=== PATIENT | female | born 1955 | race Caucasian/White ===

== ENCOUNTER → 2023-02-07 | Outpatient (CLI) | payer MEDICARE, OTHER, SELFPAY ==
[2023-02-07 21:57] LABS: Absolute Lymphocyte Count 2.47 X10^3/uL (0.83-4.51); Absolute Neutrophil Count 3.7 X10^3/uL (2.0-7.7); Basophil# 0.03 X10^3/uL; Basophil% 0.4 % (0-1); Eosinophil# 0.16 X10^3/uL; Eosinophils% 2.3 % (0-5); Hematocrit 41.6 % (37-47); Hemoglobin 13.6 g/dL (12.0-15.0); Lymphocyte # 2.47 X10^3/ul (0.83-4.51); Lymphocyte % 35.9 % (19-41); Mean Corp Hgb Conc 32.7 g/dL (32-36); Mean Corpuscular Hgb 28.3 pg (27.0-32.0); Mean Corpuscular Volume 86.7 fL (81-99); Mean Platelet Vol. 12.4 fl (6.2-12.0); Monocyte# 0.47 X10^3/uL; Monocyte% 6.8 % (0-10); NRBC Flagged by Analyzer 0 % (0-5); Neutrophil # 3.73 X10^3/uL (2.7-7.7); Neutrophil % 54.3 % (47-70); Platelet Count 247 K/mm3 (150-450); RBC Distribution Width CV 12.4 % (11.6-14.6); RBC Distribution Width SD 39.1 fl (35.1-43.9); White Blood Count 6.9 K/mm3 (4.4-11.0)
[2023-02-07 22:20] LABS: ALB/GLOB Ratio 1.1 RATIO (0.9-2.4); AST(SGOT) 17 U/L (15-37); Alanine Aminotransfer ALT/SGPT 38 U/L (13-56); Albumin, Serum 3.9 g/dL (3.2-5.0); Alkaline Phosphatase 114 U/L (45-117); Anion Gap 6 (5-15); BUN 18 mg/dL (7-18); BUN/Creat Ratio 25.9 RATIO (10-20); Calcium,Total 9.7 mg/dL (8.5-10.1); Chloride 105 mmol/L (98-107); Cholesterol 235 mg/dL (200); EST Glomerular Filtration Rate 90 mL/min (>60); Est Glom Filt Rate - Afr Amer 109 mL/min (>60); Globulin 3.5 g/dL (2.2-4.2); Glucose 294 mg/dL (74-106); High Density Lipoprotein 38 mg/dL; Potassium 4.4 mmol/L (3.5-5.1); Protein, Total 7.4 g/dL (6.4-8.2); Sodium Level 136 mmol/L (136-145); Triglycerides 327 mg/dL; Very Low Density Lipoprotein 65 mg/dL (5-40)
== END | disposition home or self-care (01) ==
PROVIDERS: Visit Provider Nurse Practitioner
DX: I10 Essential (primary) hypertension (principal); E78.2 Mixed hyperlipidemia
CPT/HCPCS: 80053; 80061; 85025

== ENCOUNTER → 2024-12-16 | Outpatient (CLI) | payer MEDICARE, OTHER, SELFPAY ==
--- OUTSIDE RECORDS SUMMARY | 2024-12-17 01:05 | XMS RPT_ITS | CCD ---
Author Organization [facility] Care Team Providers Care Moisture Meter Operator Name Role Phone [place] TEAM ASSISTANT.Kat WILSON Primary Care Provide r Sha Urrutia MD Unavailable [phone] KAT HURTADO Primary Care Unavailable KAT HURTADO Primary Care Unavailable TIAGO BE Attending Unavailable TIAGO BE Attending Unavailable TIAGO RODRIGUEZ Referring Unavailabl e KAT HURTADO Primary Care Unavailable KAT HURTADO Primary Care Unavailable Allergies Allergy Classification Reported Allergen(s) Allergy Type Date of Onset Reaction(s) Facility (5 sources) Angiotensin-conv erting enzyme inhibitor agent; Translations: [ARNOLD INHIBITORS] Drug Allergy 2 Cough [facility] (5 sources) dilTIAZem; Translations: [DILTIAZEM HCL] Drug Allergy 0 [facility] (5 sources) Sulfites; Translations: [SULFITES] Food Allergy 1 [facility] Work Phone: (5 sources) Sulfonamides (Antibiotic); Translations: [SULFA (SULFONAMIDE ANTIBIOTICS)] Drug Allergy 0 [facility] (1 source) dilTIAZem Drug Allergy 8 rash [facility] (1 source) Sulfonamides (Antibiotic) Allergy to substance 8 muscle weakness and hives [facility] Medications Current Medications Medication Drug Class(es) Dates Sig (Normalized) Sig (Original) doxycycline monohydrate 100 mg oral capsule (2 sources) Tetracycline-clas s Drug Start: 07-13-2023 End: 07-23-2023 take 1 capsule by mouth twice daily doxycycline monohydrate (MONODOX) 100 mg capsule Indications: Cellulitis of left external ear Take 1 capsule by mouth two times a day for 10 days. 20 capsule 0 07/13/2023 07/23/2023 Active Comment on above: Take 1 capsule by mo [facility] two times a day for 10 days. Completed/Discontinued Medications Medication Drug Class(es) Dates Sig (Normalized) Sig (Original) amoxicillin 500 mg oral capsule (12 sources) Penicillin-class Antibacterial Start: 08-28-2021 amoxicillin (POLYMOX, AMOXIL) 500 mg capsule Take 4 capsules by mouth 60 minutes prior to dental appointment. 12 capsule 3 08/28/2021 Active Start: 05-16-2020 take 4 capsules by m outh every hour amoxicillin (POLYMOX, AMOXIL) 500 mg capsule Take 4 capsules by mouth one hour prior to appointment. 16 capsule 1 08/31/2020 Active Comment on above: Take 4 capsules by m outh 1 hour prior to appointment Take 4 capsules by m outh one hour prior to appointment. Take 4 capsules by m outh 60 minutes prior to dental appointment. ascorbic acid 500 mg oral tablet (4 sources) Vitamin C Start: 2013 take 1 tablet by mouth twice daily ascorbic acid 500 mg tablet Take 1 tablet by mouth twice daily. 14 tablet 0 08/28/2013 Active Comment on above: Take 1 tablet by jackie twice daily. baclofen 5 mg oral tablet (5 sources) gamma-Aminobutyric Acid-ergic Agonist Start: 2021 End: 2021 take 1 tablet by mouth three times daily as needed for muscle spasms, then take 1-2 tablets by mouth three times daily as needed for muscle spasms baclofen (LIORESAL) 5 mg tablet Take 1 tablet by mouth three times daily as needed for spasms. May take 1-2 tablets up to three times daily. 60 tablet 4 10/04/2021 Active Comment on above: Take 1 tablet by jackie th three times daily as needed for spasms. May take 1-2 tablets up to three times daily. benzonatate 100 mg oral capsule (4 sources) Non-narcotic Antitussive Start: 2018 take 1 capsule by mouth three times daily as needed benzonatate (TESSALON PERLES) 100 mg capsule Indications: Acute otitis media, right Take 1 capsule by mouth three times daily as needed. 30 capsule 0 09/03/2018 Active Comment on above: Take 1 capsule by mo uth three times daily as needed. ciprofloxacin 3 mg/ml ophthalmic solution (3 sources) Quinolone Antimicrobial Start: 2023 take 5 drop(s) into the eye(s) twice daily ciprofloxacin HCl (CILOXAN) 0.3 % ophthalmic solution Instill 5 Drops two times a day into the Right ear 10 mL 1 07/15/2023 Active Comment on above: Instill 5 Drops two times a day into the Right ear clobetasol propionate 0.0005 mg/mg topical gel (3 sources) Corticosteroid Start: 2022 Clobetasol Propionate 0.05 % gel Apply twice a day for two weeks then as needed for flaring on the body 60 g 5 06/13/2022 Active Comment on above: Apply twice a day fo r two weeks then as needed for flaring on the body COMPOUNDED PRESCRIPTION (4 sources) COMPOUNDED PRESCRIPTION Multiple vitamin supplements. 0 Active Comment on above: Multiple vitamin sup plements. cyclobenzaprine hydrochloride 5 mg oral tablet (1 source) Muscle Relaxant Start: 2017 End: 2019 take 5 mg by mouth three times daily Cyclobenzaprine Discontinued 5 MG PO THREE TIMES A DAY 60 January 07, 2018 12:00am February 15, 2020 4:25pm diclofenac sodium 0.01 mg/mg topical gel (4 sources) Nonsteroidal Anti-inflammatory Drug Start: 2016 apply 4 g topically twice daily as needed for pain diclofenac sodium (VOLTAREN) 1 % topical gel 4 g twice daily as needed (for pain). As Directed. 2 Tube 0 02/01/2017 Active Comment on above: 4 g twice daily as n eeded (for pain). As Directed. gemfibrozil 600 mg oral tablet (20 sources) Peroxisome Proliferator Receptor alpha Agonist Start: 2015 End: 2022 take 1 tablet by mouth twice daily gemfibrozil (LOPID) 600 mg tablet Take 1 tablet by mouth twice daily. 180 tablet 3 02/07/2023 Active Comment on above: Take 1 tablet by jackie th twice daily. TAKE 1 TABLET BY JACKIE TH TWICE DAILY losartan potassium 100 mg oral tablet (20 sources) Angiotensin 2 Receptor Christiano Start: 2017 End: 2022 take 1 tablet by mouth once daily losartan (COZAAR) 100 mg tablet Take 1 tablet by mouth once daily 90 tablet 3 02/07/2023 Active Comment on above: TAKE 1 TABLET BY JACKIE ONCE DAILY. Take 1 tablet by jackie th once daily NUTRITIONAL SUPPLEMENT/FIBER (JUICE PLUS FIBRE ORAL) (4 sources) NUTRITIONAL SUPPLEMENT/FIBER (JUICE PLUS FIBRE ORAL) Take by mouth. 0 Active Comment on above: Take by mouth. tacrolimus 0.001 mg/mg topical ointment (3 sources) Calcineurin Inhibitor Immunosuppressant Start: 2022 tacrolimus (PROTOPIC) 0.1 % ointment Apply to affected areas of the face twice a day as needed 30 g 1 06/13/2022 Active Comment on above: Apply to affected ar eas of the face twice a day as needed valsartan 320 mg oral tablet (4 sources) Angiotensin 2 Receptor Christiano take 1 tablet by mouth once daily valsartan (DIOVAN) 320 mg tablet Take 320 mg by mouth once daily. 0 Active Comment on above: Take 320 mg by mouth once daily. 24 hr verapamil hydrochloride 240 mg extended release oral capsule (20 sources) Calcium Channel Christiano Start: 2017 End: 2022 take 1 capsule by mouth twice daily verapamil ER (VERELAN) 240 mg 24 hr capsule Take 1 capsule by mouth twice daily. 180 capsule 3 02/07/2023 Active Start: 05-18-2016 take 1 tablet by jackie th twice daily verapamil SR (CALAN SR, ISOPTIN SR) 240 mg CR tablet Take 1 tablet by mouth twice daily. 180 tablet 3 05/18/2016 Active Comment on above: Take 1 tablet by jackie twice daily. TAKE ONE CAPSULE BY MOUTH TWICE DAILY. Take 1 capsule by mo [facility] twice daily Take 1 capsule by mo [facility] twice daily. Problems Active Problems Problem Classification Problem Date Documented Date Episodic/Chronic Abdominal pain (1 source) Left upper quadrant pain; Translations: [Left upper quadrant pain] 10-04-2021 Episodic Disorders of lipid metabolism (5 sources) Hyperlipidemia; Translations: [Hyperlipidemia, unspecified] Onset: 10-24-2010 04-18-2017 Chronic Essential hypertension (5 sources) Hypertensive disorder; Translations: [Essential (primary) hypertension] Onset: 10-24-2010 04-18-2017 Chronic Immunity disorders (4 sources) Hypogammaglobulinemia ; Translations: [Nonfamilial hypogammaglobulinemia ] Onset: 08-30-2014 10-12-2015 Chronic Malaise and fatigue (1 source) Fatigue; Translations: [Other fatigue] 01-07-2018 Episodic Other ear and sense organ disorders (1 source) Cellulitis of left external ear; Translations: [Cellulitis of left external ear] 07-15-2023 Episodic Other ear and sense organ disorders (2 sources) Acute otitis externa of right ear; Translations: [Unspecified acute noninfective otitis externa, right ear] 07-15-2023 Episodic Other ear and sense organ disorders (1 source) Cellulitis of left external ear; Translations: [Cellulitis of left external ear] Onset: 07-15-2023 Episodic Other injuries and conditions due to external causes (1 source) Injury of musculoskeletal system; Translations: [Other injury of unspecified body region, initial encounter] 10-04-2021 Episodic Other screening for suspected conditions (not mental disorders or infectious disease) (1 source) Patient encounter status; Translations: [Encounter for screening mammogram for malignant neoplasm of breast] 02-17-2019 Episodic Other upper respiratory infections (1 source) Sore throat symptom; Translations: [Acute pharyngitis, unspecified] Episodic Otitis media and related conditions (1 source) Dysfunction of right eustachian tube; Translations: [Unspecified Eustachian tube disorder, right ear] 08-02-2023 Episodic Spondylosis; intervertebral disc disorders; other back problems (4 sources) Degeneration of cervical intervertebral disc; Translations: [Other cervical disc degeneration, unspecified cervical region] Onset: 02-01-2017 04-18-2017 Chronic Spondylosis; intervertebral disc disorders; other back problems (1 source) Spasm of back muscles; Translations: [Muscle spasm of back] 01-08-2018 Episodic Unclassified (4 sources) Transition of care; Translations: [Transition of care performed with sharing of clinical summary] Onset: 04-18-2017 04-19-2017 Unclassified (1 source) Hypogammaglobulinaemi a, unspecified 02-15-2020 Past or Other Problems Problem Classification Problem Date Documented Da te Episodic/Chronic Calculus of urinary tract (8 sources) Kidney stone; Translations: [Calculus of kidney] Onset: 6 06-14-2015 Episodic Gastrointestinal hemorrhage (4 sources) Gastrointestinal hemorrhage; Translations: [Gastrointestinal hemorrhage, unspecified] Onset: 7 04-18-2017 Episodic Genitourinary symptoms and ill-defined conditions (4 sources) Pyuria; Translations: [Pyuria] Onset: 6 06-14-2015 Episodic Heart valve disorders (4 sources) Heart murmur; Translations: [Cardiac murmur, unspecified] Onset: 5 08-30-2014 Episodic Other connective tissue disease (1 source) Weakness of right leg; Translations: [Other symptoms and signs involving the musculoskeletal system] Onset: 4 09-30-2013 Episodic Other connective tissue disease (3 sources) Other symptoms and signs involving the musculoskeletal system; Translations: [Other musculoskeletal symptoms referable to limbs] Onset: 4 09-30-2013 Episodic Other nervous system disorders (4 sources) Abnormal gait; Translations: [Unspecified abnormalities of gait and mobility] Onset: 4 09-30-2013 Episodic Urinary tract infections (4 sources) Pyelonephritis; Translations: [Tubulo-interstitial nephritis, not specified as acute or chronic] Onset: 6 06-21-2015 Episodic Results Test Name Value Interpretation Reference Range Facility [facility] 08-02-2023 CNOV Office Visit (WALKBR ) -------- FLO,JERILYN ([id number]) 1955 [facility] Date Time Provider Department 08/02/23 7:05 PM KENYON CAMARGO [facility] During your visit today, we recorded the following information about you: Temperature Pulse Respiration Blood pressure 98.4 degrees 92/minute 16/minute 152/86 Kenyon Camargo APRN.CNP 08/02/2023 7:32 PM Signed [facility] PATIENT NAME: Jerilyn Rossi DATE OF : 1955 TODAYS' DATE: 08/02/2023 Subjective: Ms. Rossi is a 68 year old female Patient presents with: Ear Pain: Right ear pain since jul 13 History of Present Illness: The history is provided by the patient. No foreign language interpreter was used. Ear Problem There is pain in the right ear. This is a new problem. The current episode started yesterday. The problem occurs every few hours. The problem has been unchanged. Pertinent negatives include no coughing, diarrhea, headaches, neck pain, rhinorrhea or vomiting. Associated symptoms comments: +ear wetness + ear congestion . Pt states last month she had cellulitis of right ear and was seen in [facility] and by ENT. Pt just finished Ciprodex ear drops couple days ago. Pt wants to make sure right ear is ok. Review of Systems: Review of Systems HENT: Negative for ear pain and rhinorrhea. Respiratory: Negative for cough. Gastrointestinal: Negative for diarrhea and vomiting. Musculoskeletal: Negative for neck pain. Neurological: Negative for headaches. Allergies: Allergies: Arnold Inhibitors Cough Cardizem [Diltiazem* Rash Sulfa (Sulfonamide * Rash Comment:Along with deep muscle burning. Sulfites Hives Comment:Sulfites in wine Past Medical History: PAST MEDICAL HISTORY Diagnosis Date DM type 2 goal A1C below 7.5 (HCC) Fatty liver disease, non-alcoholic HTN (hypertension) Hypogammaglobulinemia (HCC) IGG stable Knee pain, chronic RT OA (osteoarthritis) of knee Obesity Past Surgical History: PAST SURGICAL HISTORY Procedure Laterality Date ARTHRP KNE CONDYLEANDPLATU MEDIALANDLAT COMPARTMENTS 08/26/13 Knee replacement, total right BONE MARROW ASP 2011 CARDIAC CATH 03/2010 normal DELIVERY ONLY , low transverse CHOLECYSTECTOMY 08/2010 CHOLECYSTECTOMY HX CYSTOSCOPY 06/2015 with stent placement HYSTERECTOMY HX HYSTEROSCOPY with [facility] MENISCAL REPAIR SYGillian,CD,[id number] 11/2009, 2010 right ORTHOPEDICS SURGERY HX VAGINAL HYSTERECTOMY UTERUS 250 GM/< 2000 Hysterectomy, vaginal Family History: FAMILY HISTORY Problem Relation Age of Onset other (heart disease [Other]) Mother 74 Heart Father Diabetes Father Breast Cancer Mother Hypertension Mother Hypertension Father Tobacco History: Tobacco Use: Never Medications: Current Outpatient Medications Medication Sig Dispense Refill gemfibrozil (LOPID) 600 mg tablet Take 1 tablet by mouth twice daily. 180 tablet 3 losartan (COZAAR) 100 mg tablet Take 1 tablet by mouth once daily 90 tablet 3 verapamil ER (VERELAN) 240 mg 24 hr capsule Take 1 capsule by mouth twice daily. 180 capsule 3 Clobetasol Propionate 0.05 % gel Apply twice a day for two weeks then as needed for flaring on the body 60 g 5 tacrolimus (PROTOPIC) 0.1 % ointment Apply to affected areas of the face twice a day as needed 30 g 1 verapamil ER (VERELAN) 240 mg 24 hr capsule Take 1 capsule by mouth twice daily. 180 capsule 3 losartan (COZAAR) 100 mg tablet Take 1 tablet by mouth once daily. 90 tablet 3 gemfibrozil (LOPID) 600 mg tablet Take 1 tablet by mouth twice daily. 180 tablet 3 baclofen (LIORESAL) 5 mg tablet Take 1 tablet by mouth three times daily as needed for spasms. May take 1-2 tablets up to three times daily. 60 tablet 4 amoxicillin (POLYMOX, AMOXIL) 500 mg capsule Take 4 capsules by mouth 60 minutes prior to dental appointment. 12 capsule 3 verapamil ER (VERELAN) 240 mg 24 hr capsule Take 1 capsule by mouth twice daily 180 capsule 3 losartan (COZAAR) 100 mg tablet Take 1 tablet by mouth once daily 90 tablet 3 benzonatate (TESSALON PERLES) 100 mg capsule Take 1 capsule by mouth three times daily as needed. 30 capsule 0 valsartan (DIOVAN) 320 mg tablet Take 320 mg by mouth once daily. diclofenac sodium (VOLTAREN) 1 % topical gel 4 g twice daily as needed (for pain). As Directed. 2 Tube 0 verapamil SR (CALAN SR, ISOPTIN SR) 240 mg CR tablet Take 1 tablet by mouth twice daily. 180 tablet 3 gemfibrozil (LOPID) 600 mg tablet Take 1 tablet by mouth twice daily. 180 tablet 3 ascorbic acid 500 mg tablet Take 1 tablet by mouth twice daily. 14 tablet 0 COMPOUNDED PRESCRIPTION Multiple vitamin supplements. ciprofloxacin HCl (CILOXAN) 0.3 % ophthalmic solution Instill 5 Drops two times a day into the Right ear (Patient not taking: Reported on 08/02/2023) 10 mL 1 gemfibrozil (LOPID) 600 mg tablet Take 1 tablet by mouth twice daily (Patient not taking: Repo (more content not included)... Normal [facility] CNOVon 07-23-2023 CNOV Office Visit (OTOLST ) -------- JERILYN ROSSI ([id number]) 1955 F [facility] Date Time Provider Department 07/23/23 4:25 PM TIAGO BE OTOLST During your visit today, we recorded the following information about you: Tiago Be MD 07/23/2023 4:33 PM Signed History: Jerilyn Rossi, a 68 year old female, presents for f/up R OE w fac cellulitis. Completed doxy, using cipro gtts. Pain near resolved. Hearing improved. Denies drainage, nasal congestion, runny-nose, post-nasal drip. No history of noise exposure. No history of ear infections. No history of ear surgery. No history of ear trauma. No history of allergies. PE: Alert; oriented; well-developed; no apparent distress. Normal voice; normal communication. Face: no erythema or edema. Ears: R: Min dried debris cleaned. Min erythema EAC. TM clear and mobile. L: EAC free of lesions. TM clear and mobile. Assessment/Plan: R OE with facial cellulitis. Cellulitis resolved. OE near resolved. Min debris cleaned. Rec cont cipro gtts 1 more wk. Water precautions. F/up prn. Medical Decision Making: Problems: Low: Acute, uncomplicated illness or injury Risk: Low: Low risk from testing/treatment Medical Decision Making Level: 3 - Low Allergies As of Date: 07/23/2023 Noted Allergy Reaction ARNOLD INHIBITORS 09/25/2021 3 - Cough CARDIZEM (DILTIAZEM HCL) 05/25/2010 2 - Rash SULFA (SULFONAMIDE ANTIBIOTICS) 05/25/2010 2 - Rash Comments: Along with deep muscle burning. SULFITES 08/09/2010 4 - Hives Comments: Sulfites in wine Date Reviewed: 07/23/2023 Reviewed by: Tiago Be MD - Fully Assessed Reason for Visit: Follow Up [171] Primary Visit Diagnosis:Acute otitis externa of right ear, unspecified type [H60.501] Prescriptions as of 07/23/2023 - ciprofloxacin HCl (CILOXAN) 0.3 % ophthalmic solution Instill 5 Drops two times a day into the Right ear - doxycycline monohydrate (MONODOX) 100 mg capsule Take 1 capsule by mouth two times a day for 10 days. - gemfibrozil (LOPID) 600 mg tablet Take 1 tablet by mouth twice daily. - losartan (COZAAR) 100 mg tablet Take 1 tablet by mouth once daily - verapamil ER (VERELAN) 240 mg 24 hr capsule Take 1 capsule by mouth twice daily. - Clobetasol Propionate 0.05 % gel Apply twice a day for two weeks then as needed for flaring on the body - tacrolimus (PROTOPIC) 0.1 % ointment Apply to affected areas of the face twice a day as needed - verapamil ER (VERELAN) 240 mg 24 hr capsule Take 1 capsule by mouth twice daily. - losartan (COZAAR) 100 mg tablet Take 1 tablet by mouth once daily. - gemfibrozil (LOPID) 600 mg tablet Take 1 tablet by mouth twice daily. - baclofen (LIORESAL) 5 mg tablet Take 1 tablet by mouth three times daily as needed for spasms. May take 1-2 tablets up to three times daily. - amoxicillin (POLYMOX, AMOXIL) 500 mg capsule Take 4 capsules by mouth 60 minutes prior to dental appointment. - verapamil ER (VERELAN) 240 mg 24 hr capsule Take 1 capsule by mouth twice daily - losartan (COZAAR) 100 mg tablet Take 1 tablet by mouth once daily - gemfibrozil (LOPID) 600 mg tablet Take 1 tablet by mouth twice daily - amoxicillin (POLYMOX, AMOXIL) 500 mg capsule Take 4 capsules by mouth one hour prior to appointment. - amoxicillin (POLYMOX, AMOXIL) 500 mg capsule Take 4 capsules by mouth 1 hour prior to appointment - verapamil ER (VERELAN) 240 mg 24 hr capsule TAKE ONE CAPSULE BY MOUTH TWICE DAILY. - losartan (COZAAR) 100 mg tablet TAKE 1 TABLET BY MOUTH ONCE DAILY. - gemfibrozil (LOPID) 600 mg tablet TAKE 1 TABLET BY MOUTH TWICE DAILY - benzonatate (TESSALON PERLES) 100 mg capsule Take 1 capsule by mouth three times daily as needed. - valsartan (DIOVAN) 320 mg tablet Take 320 mg by mouth once daily. - NUTRITIONAL SUPPLEMENT/FIBER (JUICE PLUS FIBRE ORAL) Take by mouth. - diclofenac sodium (VOLTAREN) 1 % topical gel 4 g twice daily as needed (for pain). As Directed. - verapamil SR (CALAN SR, ISOPTIN SR) 240 mg CR tablet Take 1 tablet by mouth twice daily. - gemfibrozil (LOPID) 600 mg tablet Take 1 tablet by mouth twice daily. - ascorbic acid 500 mg tablet Take 1 tablet by mouth twice daily. - COMPOUNDED PRESCRIPTION Multiple vitamin supplements. Problem List As Of Date 07/23/2023 Noted Resolved Right knee pain [M25.561] 10/10/2010 06/17/2015 Type 2 diabetes mellitus [E11.9] 10/24/2010 08/30/2014 Hyperlipidemia with target LDL less than 100 [E*10/24/2010 Hypertension [I10] 10/24/2010 Arthritis of knee, right [M17.11] 04/20/2011 06/17/2015 S/P arthroscopy of knee [Z98.890] 04/20/2011 06/17/2015 Medial meniscus tear [S83.249A] 04/20/2011 06/17/2015 Trochanteric bursitis of left hip [M70.62] 04/20/2013 06/17/2015 Hip pain [M25.559] 04/20/2013 06/17/2015 Knee pain [M25.569] 04/20/2013 06/17/2015 S/P knee replacement [Z96.659] 09/12/2013 Knee pain, right [M25.561] (more content not included)... Normal [facility] CNOVon 07-15-2023 CNOV Office Visit (OTOLST ) -------- JERILYN ROSSI ([id number]) 1955 F [facility] Date Time Provider Department 07/15/23 4:25 PM TIAGO BE OTRAHEEMT During your visit today, we recorded the following information about you: Tiago Be MD 07/15/2023 5:00 PM Signed History: Jerilyn Rossi is seen at the request of Dr. iTago Rodriguez. Jerilyn Rossi, a 68 year old female, presents for evaluation of R ear swelling/pain, dec hearing starting 2 d ago. Started doxy. Pain and swelling improving. Denies drainage, nasal congestion, runny-nose, post-nasal drip. No history of noise exposure. No history of ear infections. No history of ear surgery. No history of ear trauma. No history of allergies. PAST MEDICAL HISTORY Diagnosis Date DM type 2 goal A1C below 7.5 (HCC) Fatty liver disease, non-alcoholic HTN (hypertension) Hypogammaglobulinemia (HCC) IGG stable Knee pain, chronic RT OA (osteoarthritis) of knee Obesity PAST SURGICAL HISTORY Procedure Laterality Date ARTHRP KNE CONDYLEANDPLATU MEDIALANDLAT COMPARTMENTS 08/26/13 Knee replacement, total right BONE MARROW ASP 2011 CARDIAC CATH 03/2010 normal DELIVERY ONLY , low transverse CHOLECYSTECTOMY 08/2010 CHOLECYSTECTOMY HX CYSTOSCOPY 06/2015 with stent placement HYSTERECTOMY HX HYSTEROSCOPY with [facility] MENISCAL REPAIR SYS,CD,[id number] 11/2009, 2010 right ORTHOPEDICS SURGERY HX VAGINAL HYSTERECTOMY UTERUS 250 GM/< 2000 Hysterectomy, vaginal PE: Alert; oriented; well-developed; no apparent distress. Normal voice; normal communication. Nose: patent, normal mucosa, no congestion, no rhinorrhea. Oral cavity, oropharynx: No ulcerative or mass lesions, tongue midline, palate elevates symmetrically, tongue base and floor of mouth soft. Neck: nontender, no lymphadenopathy or masses. Thyroid: no masses. Face: symmetric, sinuses nontender, see ear. Salivary glands: normal size, nontender, no masses. Ears: R: Mild diffuse erythema of pinna. Mild erythema an edema 3 cm ant to R ear. Mild debris in EAC - cleaned. Mild EAC edema and erythema. TM clear and mobile. L: EAC free of lesions. TM clear and mobile. Assessment/Plan: R OE with facial cellulitis. Improving on doxy. Cont doxy 10 d. Add cipro gtts. F/up 1 wk. CC: Pottschmidt Medical Decision Making: Problems: Low: Acute, uncomplicated illness or injury Risk: Moderate: Drug management Medical Decision Making Level: 3 - Low Referring Provider: TIAGO RODRIGUEZ [[id number]] Allergies As of Date: 07/15/2023 Noted Allergy Reaction ARNOLD INHIBITORS 09/25/2021 3 - Cough CARDIZEM (DILTIAZEM HCL) 05/25/2010 2 - Rash SULFA (SULFONAMIDE ANTIBIOTICS) 05/25/2010 2 - Rash Comments: Along with deep muscle burning. SULFITES 08/09/2010 4 - Hives Comments: Sulfites in wine Date Reviewed: 07/15/2023 Reviewed by: Tonya Lackey MA - Fully Assessed Reason for Visit: Ear Problem [38] Primary Visit Diagnosis:Acute otitis externa of right ear, unspecified type [H60.501] Other Visit Diagnosis:Cellulitis of left external ear [H60.12] Order(s):CONSULT TO ENT [9008] Order #: [id number]: 1 ciprofloxacin HCl (CILOXAN) 0.3 % ophthalmic solutionInstill 5 Drops two times a day into the Right earDisp: 10 mLRfl: 1 Prescriptions as of 07/15/2023 - ciprofloxacin HCl (CILOXAN) 0.3 % ophthalmic solution Instill 5 Drops two times a day into the Right ear - doxycycline monohydrate (MONODOX) 100 mg capsule Take 1 capsule by mouth two times a day for 10 days. - gemfibrozil (LOPID) 600 mg tablet Take 1 tablet by mouth twice daily. - losartan (COZAAR) 100 mg tablet Take 1 tablet by mouth once daily - verapamil ER (VERELAN) 240 mg 24 hr capsule Take 1 capsule by mouth twice daily. - Clobetasol Propionate 0.05 % gel Apply twice a day for two weeks then as needed for flaring on the body - tacrolimus (PROTOPIC) 0.1 % ointment Apply to affected areas of the face twice a day as needed - verapamil ER (VERELAN) 240 mg 24 hr capsule Take 1 capsule by mouth twice daily. - losartan (COZAAR) 100 mg tablet Take 1 tablet by mouth once daily. - gemfibrozil (LOPID) 600 mg tablet Take 1 tablet by mouth twice daily. - baclofen (LIORESAL) 5 mg tablet Take 1 tablet by mouth three times daily as needed for spasms. May take 1-2 tablets up to three times daily. - amoxicillin (POLYMOX, AMOXIL) 500 mg capsule Take 4 capsules by mouth 60 minutes prior to dental appointment. - verapamil ER (VERELAN) 240 mg 24 hr capsule Take 1 capsule by mouth twice daily - losartan (COZAAR) 100 mg tablet Take 1 tablet by mouth once daily - gemfibrozil (LOPID) 600 mg tablet Take 1 tablet by mouth twice daily - amoxicillin (POLYMOX, AMOXIL) 500 mg capsule Take 4 capsules by mouth one hour prior to appointment. - amoxicillin (POLYMOX, AMOXIL) 500 mg capsule Take 4 capsules by mouth 1 hour prior to appoi (more content not included)... Normal [facility] CNOVon 07-13-2023 CNOV Office Visit (WALKBR ) -------- JERILYN ROSSI ([id number]) 1955 F [facility] Date Time Provider Department 07/13/23 9:35 AM TIAGO RODRIGUEZ WALK[facility] During your visit today, we recorded the following information about you: Temperature Pulse Respiration Blood pressure 99.5 degrees 100/minute 18/minute 160/91 Tiago Rodriguez MD 07/13/2023 10:06 AM Signed Apply near infrared heat (heat lamp) for 15 minutes 2 to 3 times a day. Go to the ED if you worsen. Tiago Rodriguez MD 07/13/2023 10:13 AM Signed This note was created using GuidePalriter. Subjective Jerilyn Rossi is a 68 year old female. The history is provided by the patient. Ear Pain This is a new problem. The current episode started today. The problem has been rapidly worsening. Associated symptoms include swollen glands. Pertinent negatives include no fatigue, fever or sore throat. Associated symptoms comments: Right ear lobe was a little tender last night when she went to bed. The pain woke her up at 4 am. No fever. Has right neck pain along the lymph nodes.. Nothing aggravates the symptoms. She has tried nothing for the symptoms. Review of Systems Constitutional: Negative for fatigue and fever. HENT: Negative for sore throat. Objective BP 160/91 Pulse 100 Temp 37.5 ?C (99.5 ?F) Resp 18 SpO2 97% Physical Exam Vitals and nursing note reviewed. Constitutional: General: She is not in acute distress. Appearance: Normal appearance. She is not ill-appearing, toxic-appearing or diaphoretic. HENT: Head: Normocephalic and atraumatic. Right Ear: Tenderness present. Ears: Comments: Red, indurated, swollen. No abscess. Lymphadenopathy: Cervical: Cervical adenopathy present. Right cervical: Superficial cervical adenopathy and deep cervical adenopathy present. Neurological: Mental Status: She is alert. Assessment and Plan (H60.12) Cellulitis of left external ear (primary encounter diagnosis) Comment: Plan: doxycycline monohydrate (MONODOX) 100 mg capsule, CONSULT TO ENT Allergies As of Date: 07/13/2023 Noted Allergy Reaction ARNOLD INHIBITORS 09/25/2021 3 - Cough CARDIZEM (DILTIAZEM HCL) 05/25/2010 2 - Rash SULFA (SULFONAMIDE ANTIBIOTICS) 05/25/2010 2 - Rash Comments: Along with deep muscle burning. SULFITES 08/09/2010 4 - Hives Comments: Sulfites in wine Date Reviewed: 07/13/2023 Reviewed by: Nolvia Gregg MA - Fully Assessed Reason for Visit: Ear Pain [817] Cmt: Right ear red swollen painful Primary Visit Diagnosis:Cellulitis of left external ear [H60.12] Order(s):doxycycline monohydrate (MONODOX) 100 mg capsuleTake 1 capsule by mouth two times a day for 10 days.Disp: 20 capsuleRfl: 0 CONSULT TO ENT [9008] Order #: [id number]: 1 FUTURE Prescriptions as of 07/13/2023 - doxycycline monohydrate (MONODOX) 100 mg capsule Take 1 capsule by mouth two times a day for 10 days. - gemfibrozil (LOPID) 600 mg tablet Take 1 tablet by mouth twice daily. - losartan (COZAAR) 100 mg tablet Take 1 tablet by mouth once daily - verapamil ER (VERELAN) 240 mg 24 hr capsule Take 1 capsule by mouth twice daily. - Clobetasol Propionate 0.05 % gel Apply twice a day for two weeks then as needed for flaring on the body - tacrolimus (PROTOPIC) 0.1 % ointment Apply to affected areas of the face twice a day as needed - verapamil ER (VERELAN) 240 mg 24 hr capsule Take 1 capsule by mouth twice daily. - losartan (COZAAR) 100 mg tablet Take 1 tablet by mouth once daily. - gemfibrozil (LOPID) 600 mg tablet Take 1 tablet by mouth twice daily. - baclofen (LIORESAL) 5 mg tablet Take 1 tablet by mouth three times daily as needed for spasms. May take 1-2 tablets up to three times daily. - amoxicillin (POLYMOX, AMOXIL) 500 mg capsule Take 4 capsules by mouth 60 minutes prior to dental appointment. - verapamil ER (VERELAN) 240 mg 24 hr capsule Take 1 capsule by mouth twice daily - losartan (COZAAR) 100 mg tablet Take 1 tablet by mouth once daily - gemfibrozil (LOPID) 600 mg tablet Take 1 tablet by mouth twice daily - amoxicillin (POLYMOX, AMOXIL) 500 mg capsule Take 4 capsules by mouth one hour prior to appointment. - amoxicillin (POLYMOX, AMOXIL) 500 mg capsule Take 4 capsules by mouth 1 hour prior to appointment - verapamil ER (VERELAN) 240 mg 24 hr capsule TAKE ONE CAPSULE BY MOUTH TWICE DAILY. - losartan (COZAAR) 100 mg tablet TAKE 1 TABLET BY MOUTH ONCE DAILY. - gemfibrozil (LOPID) 600 mg tablet TAKE 1 TABLET BY MOUTH TWICE DAILY - benzonatate (TESSALON PERLES) 100 mg capsule Take 1 capsule by mouth three times daily as needed. - valsartan (DIOVAN) 320 mg tablet Take 320 mg by mouth once daily. - NUTRITIONAL SUPPLEMENT/FIBER (JUICE PLUS FIBRE ORAL) Take by mouth. - diclofenac sodium (VOLTAREN) 1 % topical gel 4 g twice daily as needed (for pain). As Directed. - verapamil SR (CALAN SR, ISOPTIN SR (more content not included)... Normal [facility] Absolute lymphocyte countOrd ered By: Kat Hurtado on 02-07-2023 Lymphocytes Auto (Unsp spec) [#/Vol] 2.47 10*3/uL 0.83-4.51 [facility] Basophil percentageOrdered B y: Kat Hurtado on 02-07-2023 Basophils/100 WBC (Bld) 0.4 % 0-1 [facility] Bilirubin [Mass/Vol] 0.40 mg/dL 0.20-1.00 [facility] Comment on above: For patients on eltr ombopag therapy, use of Dimension [place] TBIL is not recommended. Chloride [Moles/Vol] 105 mmol/L 98-107 [facility] Cholesterol [Mass/Vol] 235 mg/dL <200 [facility] Comment on above: <200 mg/dL Desirable 200-240 mg/dL Borderline >240 mg/dL High Risk Eosinophils/100 WBC (Bld) 2.3 % 0-5 [facility] Glucose [Mass/Vol] 294 mg/dL 74-106 [facility] Comment on above: Glucose result great er than or equal to 200 mg/dLsuggests DIABETES MELLITUS per A.D.A. criteria. Neutrophils (Bld) [#/Vol] 3.7 10*3/uL 2.0-7.7 [facility] Neutrophils/100 WBC (Bld) 54.3 % 47-70 [facility] Potassium [Moles/Vol] 4.4 mmol/L 3.5-5.1 [facility] Protein [Mass/Vol] 7.4 g/dL 6.4-8.2 [facility] Sodium [Moles/Vol] 136 mmol/L 136-145 [facility] Triglyceride [Mass/Vol] 327 mg/dL <199 [facility] Comment on above: The drugs N-Acetylcy steine and Metamizole may falsely depress this assay.Serum Triglycerides Reference Interval Normal <150 mg/dL Borderline high 150 - 199 mg/dL High 200 - 499 mg/dL Very High > or = 500 mg/dL WBC (Bld) [#/Vol] 6.9 10*3/uL 4.4-11.0 [facility] Blood erythrocytes count (nu mber/volume)Ordered By: Kat Hurtado on 02-07-2023 RBC (Bld) [#/Vol] 4.80 10*6/uL 4.2-5.4 [facility] Blood hemoglobin measurement (mass/volume)Ordered By: Kat Hurtado on 02-07-2023 Hemoglobin (Bld) [Mass/Vol] 13.6 g/dL 12.0-15.0 [facility] Blood lymphocytes/100 leukoc ytesOrdered By: Kat Hurtado on 02-07-2023 Lymphocytes/100 WBC (Bld) 35.9 % 19-41 [facility] Blood monocytes/100 leukocyt esOrdered By: Kat Hurtado on 02-07-2023 Monocytes/100 WBC (Bld) 6.8 % 0-10 [facility] Blood platelet mean volumeOr dered By: Kat Hurtado on 02-07-2023 Platelet mean volume (Bld) [Entitic vol] 12.4 fL 6.2-12.0 [facility] Determination of erythrocyte mean corpuscular volume (MCV)Ordered By: Kat Hurtado on 02-07-2023 MCV (RBC) [Entitic vol] 86.7 fL 81-99 [facility] Hematocrit Auto (Bld) [Volum e fraction]Ordered By: Kat Hurtado on 02-07-2023 Hematocrit (Bld) [Volume fraction] 41.6 % 37-47 [facility] Laboratory - Chemistry and C hemistry - challengeOrdered By: Kat Hurtado on 02-07-2023 ALP [Catalytic activity/Vol] 114 U/L 45-117 [facility] ALT [Catalytic activity/Vol] 38 U/L 13-56 [facility] CO2 [Moles/Vol] 25.0 mmol/L 21.0-32.0 [facility] Globulin (S) [Mass/Vol] 3.5 g/dL 2.2-4.2 [facility] Urea nitrogen/Creatinine [Mass ratio] 25.9 mg/mg 10-20 [facility] Laboratory - Hematology and Cell countsOrdered By: Kat Hurtado on 02-07-2023 Erythrocyte distribution width (RBC) [Entitic vol] 39.1 fL 35.1-43.9 [facility] Erythrocyte distribution width (RBC) [Ratio] 12.4 % 11.6-14.6 [facility] Immature granulocytes/100 WBC (Bld) 0.300 % 0.0-0.9 [facility] Comment on above: IG% - Immature Granu locytes (promyelocytes, myelocytes and metamyelocytes) > 1% indicates that a LEFT SHIFT is Present. MCH (RBC) [Entitic mass] 28.3 pg 27.0-32.0 [facility] Nucleated RBC/100 WBC (Bld) [Ratio] 0 % 0-5 [facility] MCHC Auto (RBC) [Mass/Vol]Or dered By: Kat Hurtado on 02-07-2023 MCHC (RBC) [Mass/Vol] 32.7 g/dL 32-36 [facility] No Panel InformationOrdered By: Kat Hurtado on 02-07-2023 Estimated GFR (MDRD) Amer 109 mL/min >60 [facility] Comment on above: GFR Calc Estimated GFR (MDRD) Non-Af Amer 90 mL/min >60 [facility] Comment on above: Non- GFR Calc Platelets bldOrdered By: Mateo Hurtado on 02-07-2023 Platelets (Bld) [#/Vol] 247 10*3/uL 150-450 [facility] Serum or plasma albumin shalonda urement (mass/volume)Ordered By: Kat Hurtado on 02-07-2023 Albumin [Mass/Vol] 3.9 g/dL 3.2-5.0 [facility] Serum or plasma albumin/glob ulin mass ratioOrdered By: Kat Hurtado on 02-07-2023 Albumin/Globulin [Mass ratio] 1.1 {ratio} 0.9-2.4 [facility] Serum or plasma calcium shalonda urement (mass/volume)Ordered By: Kat Hurtado on 02-07-2023 Calcium [Mass/Vol] 9.7 mg/dL 8.5-10.1 [facility] Serum or plasma cholesterol in HDL measurement (mass/volume)Ordered By: Kat Hurtado on 02-07-2023 Cholesterol in HDL [Mass/Vol] 38 mg/dL >40 [facility] Comment on above: The drugs N-Acetylcy steine and Metamizole may falsely depress this assay. Reference Range HDL <40 mg/dL Low HDL Cholesterol HDL >or= 60 mg/dL High HDL Cholesterol Serum or plasma cholesterol in VLDL measurement (mass/volume)Ordered By: Kat Hurtado on 02-07-2023 Cholesterol in VLDL [Mass/Vol] 65 mg/dL 5-40 [facility] Serum or plasma creatinine m easurement (mass/volume)Ordered By: Kat Hurtado on 02-07-2023 Creatinine [Mass/Vol] 0.70 mg/dL 0.55-1.02 [facility] Comment on above: The validity of the calculated GFR & GFRAA in patients over 70 years has not been determined. Clinical correlation is essential. Serum or plasma low density lipoprotein (LDL) cholesterol measurement (mass/volume)Ordered By: Kat Hurtado on 02-07-2023 Cholesterol in LDL [Mass/Vol] 132 mg/dL 0-130 [facility] Serum or plasma urea nitroge n measurement (mass/volume)Ordered By: Kat Hurtado on 02-07-2023 Urea nitrogen [Mass/Vol] 18 mg/dL 7-18 [facility] Thin prep Papanicolaou smear with manual screeningOrdered By: Kat Hurtado on 02-07-2023 Thin prep Papanicolaou smear with manual screening 17 U/L 15-37 [facility] Thin prep Papanicolaou smear with manual screening 6 5-15 [facility] STREP A MOLECULAR (POC)on Procedural Control Valid [facility] Strep A (POCT) Negative Negative [facility] HEALTHon 09-25-2021 ALLIED HEALTH HNO ID: [id number] Author: HOWIE Nj Service: Radiology Author Type: Technologist Type: Allied Health Filed: 09/25/2021 11:02 AM Note Text: Radiology Service Progress Note PATIENT NAME: Jerilyn Rossi DATE OF SERVICE: September 25, 2021 TIME: 11:01 AM PATIENT IDENTITY VERIFICATION COMPLETED USING TWO (2) IDENTIFIERS: Name and Date of confirmed by patient verbally and Name and Date of confirmed by identification band. FALL SCREENING: Has the patient had 2 falls in the last year or 1 fall with injury or currently using an Ambulatory Assistive Device (Walker, Cane, Wheelchair, Crutches, etc.)? Emergency Room Patient: Screened in ED PATIENT GENDER DATA: Female. status: : No status: NO. PATIENT RELEVANT IMPLANT DATA REVIEWED: Not Applicable RADIOLOGY DEPARTMENT: CT; Exam(s) Completed: Abdomen/Pelvis PERIPHERAL IV DATA: Not applicable SIGNED BY: HOWIE Nj September 25, 2021 11:01 AM [facility] CBC W Auto Differential pane l (Bld)on 09-25-2021 Basophils (Bld) [#/Vol] 0.03 10*3/uL Normal <0.11 [facility] Comment on above: Order Comment: Speci men Type: BLOOD SPECIMEN Ordering Facility: [facility] Address: [address] [place] [address] Performed By: #### 5 7021-8 #### [facility] CLIA [id number] [address] [place] Basophils/100 WBC (Bld) 0.4 % Normal [facility] Comment on above: Order Comment: Speci men Type: BLOOD SPECIMEN Ordering Facility: [facility] Address: [address] [place] [address] Performed By: #### 5 7021-8 #### [facility] CLIA [id number] [address] Differential cell count method Nom (Bld) Auto Normal [facility] Comment on above: Order Comment: Speci men Type: BLOOD SPECIMEN Ordering Facility: [facility] Address: [address] [place] [address] Performed By: #### 5 7021-8 #### [facility] CLIA [id number] [address] [place] [address] [place] Eosinophils (Bld) [#/Vol] 0.10 10*3/uL Normal <0.46 [facility] Comment on above: Order Comment: Speci men Type: BLOOD SPECIMEN Ordering Facility: [facility] Address: [address] [place] [address] Performed By: #### 5 7021-8 #### [facility] CLIA [id number] [address] [place] Eosinophils/100 WBC (Bld) 1.4 % Normal [facility] Comment on above: Order Comment: Speci men Type: BLOOD SPECIMEN Ordering Facility: [facility] Address: [address] [place] [address] Performed By: #### 5 7021-8 #### [facility] CLIA [id number] [address] [place] Erythrocyte distribution width (RBC) [Ratio] 12.0 % Normal 11.5-15.0 [facility] Comment on above: Order Comment: Speci men Type: BLOOD SPECIMEN Ordering Facility: [facility] Address: [address] [place] [address] Performed By: #### 5 7021-8 #### [facility] CLIA [id number] [address] Hematocrit (Bld) [Volume fraction] 41.4 % Normal 36.0-46.0 [facility] Comment on above: Order Comment: Speci men Type: BLOOD SPECIMEN Ordering Facility: [facility] Address: [address] [place] [address] Performed By: #### 5 7021-8 #### [facility] CLIA [id number] [address] Hemoglobin (Bld) [Mass/Vol] 14.2 g/dL Normal 11.5-15.5 [facility] Comment on above: Order Comment: Speci men Type: BLOOD SPECIMEN Ordering Facility: [facility] Address: [address] [place] [address] Performed By: #### 5 7021-8 #### [facility] CLIA [id number] [address] IMMATURE GRAN % 0.1 % Normal [facility] Comment on above: Order Comment: Speci men Type: BLOOD SPECIMEN Ordering Facility: [facility] Address: [address] [place] [address] Performed By: #### 5 7021-8 #### [facility] CLIA [id number] [address] IMMATURE GRAN ABS <0.03 Normal <0.10 [facility] Comment on above: Order Comment: Speci men Type: BLOOD SPECIMEN Ordering Facility: [facility] Address: [address] [place] [address] Performed By: #### 5 7021-8 #### [facility] CLIA [id number] [address] [place] Lymphocytes (Bld) [#/Vol] 2.17 10*3/uL Normal 1.00-4.00 [facility] Comment on above: Order Comment: Speci men Type: BLOOD SPECIMEN Ordering Facility: [facility] Address: [address] [place] [address] Performed By: #### 5 7021-8 #### [facility] CLIA [id number] [address] Lymphocytes/100 WBC (Bld) 30.6 % Normal [facility] Comment on above: Order Comment: Speci men Type: BLOOD SPECIMEN Ordering Facility: [facility] Address: [address] [place] [address] Performed By: #### 5 7021-8 #### [facility] CLIA [id number] [address] [place] [facility] MCH (RBC) [Entitic mass] 29.2 pg Normal 26.0-34.0 [facility] Comment on above: Order Comment: Speci men Type: BLOOD SPECIMEN Ordering Facility: [facility] Address: [address] [place] [address] Performed By: #### 5 7021-8 #### [facility] CLIA [id number] [address] [place] [facility] MCHC (RBC) [Mass/Vol] 34.3 g/dL Normal 30.5-36.0 [facility] Comment on above: Order Comment: Speci men Type: BLOOD SPECIMEN Ordering Facility: [facility] Address: [address] [place] [address] Performed By: #### 5 7021-8 #### [facility] CLIA [id number] [address] MCV (RBC) [Entitic vol] 85.0 fL Normal 80.0-100.0 [facility] Comment on above: Order Comment: Speci men Type: BLOOD SPECIMEN Ordering Facility: [facility] Address: [address] [place] [address] Performed By: #### 5 7021-8 #### [facility] CLIA [id number] [address] Monocytes (Bld) [#/Vol] 0.65 10*3/uL Normal <0.87 [facility] Comment on above: Order Comment: Speci men Type: BLOOD SPECIMEN Ordering Facility: [facility] Address: [address] [place] [address] Performed By: #### 5 7021-8 #### [facility] CLIA [id number] [address] [place] Monocytes/100 WBC (Bld) 9.2 % Normal [facility] Comment on above: Order Comment: Speci men Type: BLOOD SPECIMEN Ordering Facility: [facility] Address: [address] [place] [address] Performed By: #### 5 7021-8 #### [facility] CLIA [id number] [address] Neutrophils (Bld) [#/Vol] 4.13 10*3/uL Normal 1.45-7.50 [facility] Comment on above: Order Comment: Speci men Type: BLOOD SPECIMEN Ordering Facility: [facility] Address: [address] [place] [address] Performed By: #### 5 7021-8 #### [facility] CLIA [id number] [address] Neutrophils/100 WBC (Bld) 58.3 % Normal [facility] Comment on above: Order Comment: Speci men Type: BLOOD SPECIMEN Ordering Facility: [facility] Address: [address] [place] [address] Performed By: #### 5 7021-8 #### [facility] CLIA [id number] [address] [place] Nucleated RBC (Bld) [#/Vol] 10*3/uL Normal <0.01 [facility] Comment on above: Order Comment: Speci men Type: BLOOD SPECIMEN Ordering Facility: [facility] Address: [address] [place] [address] Performed By: #### 5 7021-8 #### [facility] CLIA [id number] [address] [place] Nucleated RBC/100 WBC (Bld) [Ratio] 0.0 /100 WBC Normal [facility] Comment on above: Order Comment: Speci men Type: BLOOD SPECIMEN Ordering Facility: [facility] Address: [address] [place] [address] Performed By: #### 5 7021-8 #### [facility] CLIA [id number] [address] [place] [address] [place] Platelet mean volume (Bld) [Entitic vol] 11.7 fL Normal 9.0-12.7 [facility] Comment on above: Order Comment: Speci men Type: BLOOD SPECIMEN Ordering Facility: [facility] Address: [address] [place] [address] Performed By: #### 5 7021-8 #### [facility] CLIA [id number] [address] [place] [address] [place] Platelets (Bld) [#/Vol] 256 10*3/uL Normal 150-400 [facility] Comment on above: Order Comment: Speci men Type: BLOOD SPECIMEN Ordering Facility: [facility] Address: [address] [place] [address] Performed By: #### 5 7021-8 #### [facility] CLIA [id number] [address] [place] [address] [place] RBC (Bld) [#/Vol] 4.87 10*6/uL Normal 3.90-5.20 [facility] Comment on above: Order Comment: Speci men Type: BLOOD SPECIMEN Ordering Facility: [facility] Address: [address] [place], [place] [id number] Performed By: #### 5 7021-8 #### [facility] CLIA [id number] [address] [place] [address] [place] WBC (Bld) [#/Vol] 7.09 10*3/uL Normal 3.70-11.00 [facility] Comment on above: Order Comment: Speci men Type: BLOOD SPECIMEN Ordering Facility: [facility] Address: [address] [place] [address] Performed By: #### 5 7021-8 #### [facility] CLIA [id number] [address] [place] [address] [place] CT FLANK WO IVCONon 09-26-19 CT FLANK WO IVCON * * *Final Report* * * DATE OF EXAM: Sep 25 2021 11:04AM [facility] 0529 - CT FLANK WO IVCON / PROCEDURE REASON: Flank pain, stone disease suspected * * * * Physician Interpretation * * * * EXAMINATION: CT ABDOMEN AND PELVIS WITHOUT IV CONTRAST (Renal stone protocol) CLINICAL HISTORY: Unspecified flank pain. Hematuria. TECHNIQUE: Non-contrast imaging of the abdomen and pelvis was performed through the urinary tract. Study performed without intravenous or oral contrast to evaluate for urinary tract calculus. MQ: [id number] Contrast: IV contrast: None Oral contrast: None CT Radiation dose: Integrated dose-length product (DLP) for this visit = 333 mGy*cm. CT Dose Reduction Employed: mAs-kVp adjusted based on patient size-age COMPARISON: None. RESULT: Limitations: Unenhanced imaging is limited for the evaluation of some renal and other intra-abdominal and pelvic pathology. Urinary Tract: Right kidney and ureter: No calculus. No hydronephrosis. Stable small angiomyolipoma. No finding to suggest cyst or mass in the unenhanced kidney. Left kidney and ureter: No calculus. No hydronephrosis. No finding to suggest cyst or mass in the unenhanced kidney. Bladder: No calculus. Abdomen and Pelvis: Liver: Unremarkable. The liver is prominent in size measuring 24 cm in length. Biliary: No biliary dilatation. Prior cholecystectomy. Spleen: No splenomegaly. Pancreas: Unremarkable. Adrenals: Normal. GI Tract: No bowel dilation. Lymph Nodes: No lymphadenopathy. Mesentery/peritoneum: No ascites. Vasculature: Arterial atherosclerotic disease without aneurysm. Pelvis: No mass or ascites. Hysterectomy . Bones and Soft Tissues: Degenerative changes of the lumbar spine with no acute abnormality. Lower thorax: Unremarkable. [employer] Worker (topogram) images: No additional findings. IMPRESSION: NO URINARY TRACT CALCULUS. NO HYDRONEPHROSIS. Financial Reserve Clerk: YESSICA Transcribe Date/Time: Sep 25 2021 11:15A Dictated by : MELIA ELDRIDGE MD This examination was interpreted and the report reviewed and electronically signed by: MELIA ELDRIDGE MD on Apr 25 2022 11:31AM EST [id number] Normal [facility] Comprehensive metabolic 2000 panelon 09-25-2021 Albumin [Mass/Vol] 4.6 g/dL Normal 3.9-4.9 [facility] Comment on above: Order Comment: Speci men Type: BLOOD SPECIMEN Ordering Facility: [facility] Address: [address] [place] [address] Performed By: #### 3 040-3, 27721-7, 78385-8 #### [facility] CLIA [id number] [address] [place] [address] [place] ALP [Catalytic activity/Vol] 119 U/L Normal 34-123 [facility] Comment on above: Order Comment: Speci men Type: BLOOD SPECIMEN Ordering Facility: [facility] Address: [address] [place] [address] Performed By: #### 3 040-3, 59972-5, 65476-1 #### [facility] CLIA [id number] [address] STATES OF [facility] ALT [Catalytic activity/Vol] 27 U/L Normal 7-38 [facility] Comment on above: Order Comment: Speci men Type: BLOOD SPECIMEN Ordering Facility: [facility] Address: [address] [place] [address] Performed By: #### 3 040-3, 72767-2, 37719-9 #### [facility] CLIA [id number] [address] Anion gap [Moles/Vol] 14 mmol/L Normal 9-18 [facility] Comment on above: Order Comment: Speci men Type: BLOOD SPECIMEN Ordering Facility: [facility] Address: [address] [place] [address] Performed By: #### 3 040-3, 57643-0, 30083-8 #### [facility] CLIA [id number] [address] [place] [address] [place] AST [Catalytic activity/Vol] 20 U/L Normal 13-35 [facility] Comment on above: Order Comment: Speci men Type: BLOOD SPECIMEN Ordering Facility: [facility] Address: [address] [place] [place] [address] Performed By: #### 3 040-3, , #### [facility] CLIA [id number] [address] [place] [address] [place] Bilirubin [Mass/Vol] 0.6 mg/dL Normal 0.2-1.3 [facility] Comment on above: Order Comment: Speci men Type: BLOOD SPECIMEN Ordering Facility: [facility] Address: [address] [place] [address] Performed By: #### 3 040-3, , #### [facility] CLIA [id number] [address] [place] [address] [place] Calcium [Mass/Vol] 10.1 mg/dL Normal 8.5-10.2 [facility] Comment on above: Order Comment: Speci men Type: BLOOD SPECIMEN Ordering Facility: [facility] Address: [address] [place] [address] Performed By: #### 3 040-3, , #### [facility] CLIA [id number] [address] [place] [address] [place] Chloride [Moles/Vol] 98 mmol/L Normal 97-105 [facility] Comment on above: Order Comment: Speci men Type: BLOOD SPECIMEN Ordering Facility: [facility] Address: [address] [place] [address] Performed By: #### 3 040-3, , #### [facility] CLIA [id number] [address] [place] [address] [place] CO2 [Moles/Vol] 23 mmol/L Normal 22-30 [facility] Comment on above: Order Comment: Speci men Type: BLOOD SPECIMEN Ordering Facility: [facility] Address: [address] [place] [address] [place] [address] Performed By: #### 3 040-3, , #### [facility] CLIA [id number] [address] [place] [address] [place] Creatinine [Mass/Vol] 0.47 mg/dL Low 0.58-0.96 [facility] Comment on above: Order Comment: Monik jean Type: BLOOD SPECIMEN Ordering Facility: [facility] Address: [address] [id number] Performed By: #### 3 040-3, 23415-3, 34980-4 #### [facility] CLIA [id number] [address] ESTIMATED GLOMERULAR FILTRATION RATE 106 mL/min/1.73m??? Normal >=60 [facility] Comment on above: Order Comment: Monik jean Type: BLOOD SPECIMEN Ordering Facility: [facility] Address: [address] [facility] [place] [address] Result Comment: Ernestina mated Glomerular Filtration Rate (eGFR) is calculated using the 2020 CKD-EPI creatinine equation. This equation utilizes serum creatinine, sex, and age as parameters. The creatinine assay has traceable calibration to isotope dilution-mass spectrometry. Refer to KDIGO guidelines for clinical interpretation. In patients with unstable renal function, e.g. those with acute kidney injury, the eGFR may not accurately reflect actual GFR. Performed By: #### 3 040-3, 36855-5, 62794-6 #### [facility] CLIA [id number] [address] [place] Glucose [Mass/Vol] 295 mg/dL High 74-99 [facility] Comment on above: Order Comment: Monik jean Type: BLOOD SPECIMEN Ordering Facility: [facility] Address: [address] [place] [address] Result Comment: The [place] Diabetes Association (ADA) provides guidance for cutoff values for fasting glucose and random glucose. The ADA defines fasting as no caloric intake for at least 8 hours. Fasting plasma glucose results between 100 to 125 mg/dL indicate increased risk for diabetes (prediabetes). Fasting plasma glucose results greater than or equal to 126 mg/dL meet the criteria for diagnosis of diabetes. In the absence of unequivocal hyperglycemia, results should be confirmed by repeat testing. In a patient with classic symptoms of hyperglycemia or hyperglycemic crisis, random plasma glucose results greater than or equal to 200 mg/dL meet the criteria for diagnosis of diabetes. Reference: Standards of Medical Care in Diabetes 2016, [place] Diabetes Association. Diabetes Care. 2016.39(Suppl 1). Performed By: #### 3 040-3, 41022-9, 63979-1 #### [facility] CLIA [id number] [address] [place] [address] [place] [facility] Potassium [Moles/Vol] 4.4 mmol/L Normal 3.7-5.1 [facility] Comment on above: Order Comment: Speci men Type: BLOOD SPECIMEN Ordering Facility: [facility] Address: [address] [place] [address] Performed By: #### 3 040-3, 92668-8, 23739-1 #### [facility] CLIA [id number] [address] [place] [address] [place] Protein [Mass/Vol] 7.1 g/dL Normal 6.3-8.0 [facility] Comment on above: Order Comment: Speci men Type: BLOOD SPECIMEN Ordering Facility: [facility] Address: [address] [place] [address] Performed By: #### 3 040-3, 76135-5, 47922-6 #### [facility] CLIA [id number] [address] [place] Sodium [Moles/Vol] 135 mmol/L Low 136-144 [facility] Comment on above: Order Comment: Speci men Type: BLOOD SPECIMEN Ordering Facility: [facility] Address: [address] [place] [address] Performed By: #### 3 040-3, , 76646-3 #### [facility] CLIA [id number] [address] [place] [address] [place] Urea nitrogen [Mass/Vol] 13 mg/dL Normal 7-21 [facility] Comment on above: Order Comment: Speci men Type: BLOOD SPECIMEN Ordering Facility: [facility] Address: [address] [place] [address] Performed By: #### 3 040-3, 03400-0, 89542-9 #### [facility] CLIA [id number] [address] [place] [address] [place] ED NOTEon 09-25-2021 ED NOTE HNO ID: [id number] Author: Fátima Gillis RN Service: Nursing Author Type: Registered Nurse Type: ED Notes Filed: 09/28/2021 5:23 PM Note Text: Emergency Services: ED Call Back Questionnaire SERVICE DATE: 09/25/2021 Are you feeling better? Yes Any questions about discharge instructions and follow-up care? No Were you able to make a follow up appointment? Yes Do you have any further questions? No Is there anything that we could have done differently to improve your ED visit? No No there is no one I want to recognize that was involved with my care. SIGNATURE: Fátima Gillis RN PATIENT NAME: Jerilyn Rossi DATE: September 28, 2021 TIME: 5:22 PM [facility] ED NOTE HNO ID: [id number] Author: Jess Hays RN Service: ? Author Type: Registered Nurse Type: ED Notes Filed: 09/25/2021 12:09 PM Note Text: Patient in stable condition upon discharge. resp even and unlabored no distress noted. Discharge and follow up reviewed plan of care is agreed upon. Patient thankful for care upon discharge. [facility] ED NOTE HNO ID: [id number] Author: Mary Pinto RN Service: ? Author Type: Registered Nurse Type: ED Notes Filed: 09/25/2021 10:17 AM Note Text: Pt to ED with diffuse abd pain. Denies N/V/D. No problems with urination. Denies flank pain but reports it feels similar to when she had a kidney stone in the past. [facility] ED PROV NOTEon 09-25-2021 ED PROV NOTE HNO ID: [id number] Author: Racquel Kamara PA-C Service: Emergency Medicine Author Type: Physician Student Admissions Clerk Type: ED Provider Notes Filed: 09/25/2021 3:27 PM Note Text: ED Provider Note Patient Name: Jerilyn Rossi : 1955 SERVICE DATE: 09/25/21 History Patient presents with: Abdominal Pain 66-year-old female history of hypertension, diabetes, presents to ED complaining of abdominal pain. Patient states she has been having left-sided pain for the past few weeks. Noticed it after moving and thought it was due to the activity. Pain is occasionally in the periumbilical area, left upper, left lower abdomen but also in the left lower back and up to her shoulder blade. It seems to be positional or just to light touch. Denies nausea, vomiting, diarrhea. No dysuria or hematuria. She has had a kidney stone and this is somewhat similar. No fever, chills. Has not been taking anything at home for the pain. History provided by: Medical records and patient PAST MEDICAL HISTORY Diagnosis Date - DM type 2 goal A1C below 7.5 (HCC) - Fatty liver disease, non-alcoholic - HTN (hypertension) - Hypogammaglobulinemia (HCC) IGG stable - Knee pain, chronic RT - OA (osteoarthritis) of knee - Obesity PAST SURGICAL HISTORY Procedure Laterality Date - ARTHRP KNE CONDYLEANDPLATU MEDIALANDLAT COMPARTMENTS 08/26/13 Knee replacement, total right - BONE MARROW ASP 2011 - CARDIAC CATH 03/2010 normal - DELIVERY ONLY , low transverse - CHOLECYSTECTOMY 08/2010 - CHOLECYSTECTOMY HX - CYSTOSCOPY 06/2015 with stent placement - HYSTERECTOMY HX - HYSTEROSCOPY with DANDC - MENISCAL REPAIR SYS,CD,[id number] 11/2009, 2010 right - ORTHOPEDICS SURGERY HX - VAGINAL HYSTERECTOMY UTERUS 250 GM/< 2000 Hysterectomy, vaginal FAMILY HISTORY Problem Relation Age of Onset - other (heart disease [Other]) Mother 74 - Heart Father - Diabetes Father - Breast Cancer Mother - Hypertension Mother - Hypertension Father Social History Tobacco Use - Smoking status: Never Smoker - Smokeless tobacco: Never Used Substance and Sexual Activity - Alcohol use: No Comment: none - Drug use: No - Sexual activity: Not on file ALLERGIES Allergen Reactions - Arnold Inhibitors Cough - Cardizem [Diltiazem* Rash - Sulfa (Sulfonamide * Rash Along with deep muscle burning. - Sulfites Hives Sulfites in wine Review of Systems Constitutional: Negative for chills and fever. Respiratory: Negative. Cardiovascular: Negative. Gastrointestinal: Positive for abdominal pain. Negative for diarrhea and nausea. Genitourinary: Positive for flank pain. Negative for dysuria and hematuria. Musculoskeletal: Positive for back pain. Skin: Negative. Neurological: Negative. Hematological: Negative. Psychiatric/Behavioral: Negative. Physical Exam Vitals [09/25/21 1014] BP Pulse Temp Temp src Resp SpO2 Weight Height 180/92 (!) 92 36.4 ?C (97.5 ?F) Temporal 18 97 % 85.7 kg (189 lb) -- Physical Exam Vitals and nursing note reviewed. Constitutional: Appearance: Normal appearance. HENT: Head: Normocephalic and atraumatic. Mouth/Throat: Mouth: Mucous membranes are moist. Eyes: Extraocular Movements: Extraocular movements intact. Conjunctiva/sclera: Conjunctivae normal. Pupils: Pupils are equal, round, and reactive to light. Cardiovascular: Rate and Rhythm: Normal rate and regular rhythm. Pulses: Normal pulses. Heart sounds: Normal heart sounds. Pulmonary: Effort: Pulmonary effort is normal. Breath sounds: Normal breath sounds. Abdominal: General: There is no distension. Palpations: Abdomen is soft. Tenderness: There is abdominal tenderness (LLQ). There is no right CVA tenderness, left CVA tenderness, guarding or rebound. Musculoskeletal: General: Normal range of motion. Cervical back: Normal range of motion. Comments: No midline vertebral tenderness. Left lumbar tenderness. Skin: General: Skin is warm and dry. Capillary Refill: Capillary refill takes less than 2 seconds. Neurological: Mental Status: She is alert and oriented to person, place, and time. Sensory: No sensory deficit. Motor: No weakness. Gait: Gait normal. Diagnostic Testing ED Labs Ordered and Reviewed - No data to display CT FLANK WO IVCON Final Result IMPRESSION: NO URINARY TRACT CALCULUS. NO HYDRONEPHROSIS. Financial Reserve Clerk: YESSICA Transcribe Date/Time: Sep 25 2021 11:15A Dictated by : EMLIA ELDRIDGE MD This examination was interpreted and the report reviewed and electronically signed by: MELIA ELDRIDGE MD on Sep 25 2021 11:31AM EST Procedures ED Course / Clinical Impression Clinical Impressions as of 09/25/21 1522 Left sided abdominal pain Acute left-sided back pain, unspecified back location MDM / Disposition / Plan Course: 66-year-old female presents to ED complaining of left-sided abdominal and back pain. Vital signs were re (more content not included)... Normal [facility] Lipase SerPl-cCncon 09-26-19 Lipase [Catalytic activity/Vol] 37 U/L Normal 16-61 [facility] Comment on above: Order Comment: Speci men Type: BLOOD SPECIMEN Ordering Facility: [facility] Address: [address] [place] [address] Performed By: #### 3 040-3, 51238-3, 11858-2 #### [facility] CLIA [id number] [address] [place] Magnesium SerPl-mCncon 09-25 Magnesium [Mass/Vol] 1.7 mg/dL Normal 1.7-2.3 [facility] Comment on above: Order Comment: Speci men Type: BLOOD SPECIMEN Ordering Facility: [facility] Address: [address] [place] [address] Performed By: #### 3 040-3, 10228-5, 40033-8 #### [facility] CLIA [id number] [address] URINALYSIS, REFLEX MICROSCOP ICon 09-25-2021 Bacteria LM.HPF (Urine sed) [#/Area] Few Abnormal None Seen [facility] Comment on above: Order Comment: Speci men Type: URINE SPECIMEN Ordering Facility: [facility] Address: [address] [place] [address] Performed By: #### L [id number] #### [facility] CLIA [id number] [address] Bilirubin Ql (U) Negative Normal Negative [facility] Comment on above: Order Comment: Speci men Type: URINE SPECIMEN Ordering Facility: [facility] Address: [address] [place] [address] Performed By: #### L [id number] #### [facility] CLIA [id number] [address] Clarity (Unsp spec) Clear Normal Clear [facility] Comment on above: Order Comment: Speci men Type: URINE SPECIMEN Ordering Facility: [facility] Address: [address] [place] [address] Performed By: #### L [id number] #### [facility] CLIA [id number] [address] Color (U) Yellow Normal Yellow [facility] Comment on above: Order Comment: Speci men Type: URINE SPECIMEN Ordering Facility: [facility] Address: [address] [place] [place] [address] Performed By: #### L [id number] #### [facility] CLIA [id number] [address] Epithelial cells LM.HPF (Urine sed) [#/Area] Few Normal [facility] Comment on above: Order Comment: Speci men Type: URINE SPECIMEN Ordering Facility: [facility] Address: [address] [place] [address] Result Comment: Few Performed By: #### L [id number] #### [facility] CLIA [id number] [address] [place] Glucose Test strip (U) [Mass/Vol] Negative Normal Negative [facility] Comment on above: Order Comment: Speci men Type: URINE SPECIMEN Ordering Facility: [facility] Address: [address] [place] [address] Performed By: #### L [id number] #### [facility] CLIA [id number] [address] [place] Hemoglobin Ql (U) Negative Normal Negative [facility] Comment on above: Order Comment: Speci men Type: URINE SPECIMEN Ordering Facility: [facility] Address: [address] [place] [address] Performed By: #### L [id number] #### [facility] CLIA [id number] [address] Ketones Ql (U) Negative Normal Negative [facility] Comment on above: Order Comment: Speci men Type: URINE SPECIMEN Ordering Facility: [facility] Address: [address] [place] [address] Performed By: #### L [id number] #### [facility] CLIA [id number] [address] Leukocyte esterase Test strip Ql (U) Trace Abnormal Negative [facility] Comment on above: Order Comment: Speci men Type: URINE SPECIMEN Ordering Facility: [facility] Address: [address] [place] [address] Performed By: #### L [id number] #### [facility] CLIA [id number] [address] [place] Nitrite Ql (U) Negative Normal Negative [facility] Comment on above: Order Comment: Speci men Type: URINE SPECIMEN Ordering Facility: [facility] Address: [address] [place] [address] Performed By: #### L [id number] #### [facility] CLIA [id number] [address] [place] pH (U) 6.0 [pH] Normal 5.0-8.0 [facility] Comment on above: Order Comment: Speci men Type: URINE SPECIMEN Ordering Facility: [facility] Address: [address] [place] [address] Performed By: #### L [id number] #### [facility] CLIA [id number] [address] [place] Protein (U) [Mass/Vol] Negative Normal Negative [facility] Comment on above: Order Comment: Speci men Type: URINE SPECIMEN Ordering Facility: [facility] Address: [address] [place] [address] Performed By: #### L [id number] #### [facility] CLIA [id number] [address] [place] RBC LM.HPF (Urine sed) [#/Area] 0-3 /HPF Normal 0-3 /HPF [facility] Comment on above: Order Comment: Speci men Type: URINE SPECIMEN Ordering Facility: [facility] Address: [address] [place] [address] Performed By: #### L [id number] #### [facility] CLIA [id number] [address] Specific gravity (U) [Rel density] <=1.005 Low 1.005-1.030 [facility] Comment on above: Order Comment: Speci men Type: URINE SPECIMEN Ordering Facility: [facility] Address: [address] [place] [address] Performed By: #### L [id number] #### [facility] CLIA [id number] [address] Urobilinogen Ql (U) 0.2 EU/dL Normal 0.2-1.0 EU/dL [facility] Comment on above: Order Comment: Speci men Type: URINE SPECIMEN Ordering Facility: [facility] Address: [address] [place] [address] Performed By: #### L [id number] #### [facility] CLIA [id number] [address] WBC LM.HPF (Urine sed) [#/Area] 0-5 /HPF Normal 0-5 /HPF [facility] Comment on above: Order Comment: Speci men Type: URINE SPECIMEN Ordering Facility: [facility] Address: [address] [place] [address] Performed By: #### L [id number] #### [facility] CLIA [id number] [address] Vital Signs Date Time Vital Sign Value Performing Clinician Judithi chrisy 08-02-2023 19:11-0500 Body temperature 98.4 [degF] Kenyon Parishere TEAM ASSISTANT.STOCK PITCHER Work Phone: [facility] 08-02-2023 19:11-0500 Diastolic blood pressure 86 mm[Hg] Kenyon Larouere TEAM ASSISTANT.STOCK PITCHER Work Phone: [facility] 08-02-2023 19:11-0500 Heart rate 92 /min Kenyon Chrisouere TEAM ASSISTANT.STOCK PITCHER Work Phone: [facility] 08-02-2023 19:11-0500 Respiratory rate 16 /min Kenyon Parishere TEAM ASSISTANT.STOCK PITCHER Work Phone: [facility] 08-02-2023 19:11-0500 SaO2% (BldA) [Mass fraction] 98 % Kenyon Chrisouere TEAM ASSISTANT.STOCK PITCHER Work Phone: [facility] 08-02-2023 19:11-0500 Systolic blood pressure 152 mm[Hg] Kenyon Chrisouere TEAM ASSISTANT.STOCK PITCHER Work Phone: [facility] 02-07-2023 17:36-0400 Body height 165.1 cm [facility] 02-07-2023 17:36-0400 Body mass index (BMI) [Ratio] 30.4 kg/m2 [facility] 02-07-2023 17:36-0400 Body temperature 97.9 [degF] [facility] 02-07-2023 17:36-0400 Body weight 83 kg [facility] 02-07-2023 17:36-0400 Diastolic blood pressure 70 mm[Hg] [facility] 02-07-2023 17:36-0400 Heart rate 84 /min [facility] 02-07-2023 17:36-0400 Respiratory rate 18 /min [facility] 02-07-2023 17:36-0400 SaO2% (BldA) [Mass fraction] 97 % [facility] 02-07-2023 17:36-0400 Systolic blood pressure 140 mm[Hg] [facility] 04-24-2022 08:44-0500 Body temperature 97.9 [degF] Naaid Korduba PA-C Work Phone: [facility] 04-24-2022 08:44-0500 Body weight 85.84 kg Anaid Korduba PA-C Work Phone: [facility] 04-24-2022 08:44-0500 Diastolic blood pressure 83 mm[Hg] Anaid Korduba PA-C Work Phone: [facility] 04-24-2022 08:44-0500 Heart rate 84 /min Anaid Korduba PA-C Work Phone: [facility] 04-24-2022 08:44-0500 Respiratory rate 18 /min Anaid Korduba PA-C Work Phone: [facility] 04-24-2022 08:44-0500 SaO2% (BldA) [Mass fraction] 97 % Anaid Korduba PA-C Work Phone: [facility] 04-24-2022 08:44-0500 Systolic blood pressure 138 mm[Hg] Anaid Korduba PA-C Work Phone: [facility] Encounters Encounter Date Encounter Type Care Provider Facility Start: 08-02-2023 End: 08-02-2023 ambulatory KATSarah HURTADO Facility:[facility] Start: 08-02-2023 End: 08-02-2023 Patient encounter procedure Kenyon Camargo STOCK PITCHER Work Phone: [facility] Comment on above: Eustachian tube dysf unction, right (Primary Dx) Start: 07-23-2023 End: 07-23-2023 ambulatory KAT HURTADO Facility:[facility] Start: 07-23-2023 End: 07-23-2023 Patient encounter procedure Tiago Be MD Work Phone: Ot[facility]ology Comment on above: Acute otitis externa of right ear, unspecified type (Primary Dx) Start: 07-15-2023 End: 07-15-2023 ambulatory TIAGO BE Facility:[facility] Start: 07-15-2023 End: 07-15-2023 Patient encounter procedure Tiago Be MD Work Phone: Otolaryngology Comment on above: Acute otitis externa of right ear, unspecified type (Primary Dx); Cellulitis of left external ear Start: 07-13-2023 End: 07-13-2023 ambulatory CHANDLER Carson HURTADO Facility:[facility] Start: 02-07-2023 End: 02-07-2023 ambulatory [facility] Work Phone: Start: 02-07-2023 End: 02-07-2023 Patient encounter procedure [facility], Specimen Work Phone: Start: 04-24-2022 End: 04-24-2022 Patient encounter procedure Anaid Long PA-C Work Phone: [facility] Comment on above: Sore throat (Primary Dx) Procedures Date Procedure Procedure Detail Performing Clinician Start: 04-24-2022 STREP A MOLECULAR (POC) Anaid Long PA-C Work Phone: Start: 06-01-2020 Mammography Anaid Donahue anila RUBINC Work Phone: Start: 08-23-2014 Colonoscopy Anaid Donahue anila PA-C Work Phone: Start: 09-12-2013 H/O: artificial joint S/P knee repla cement Anaid Mccallalexsander GILLIAM-C Work Phone: Plan of Treatment Date Care Activity Detail Author Start: 06-03-2023 Advance Directive Discussion Advance Directive Discussion [facility] [facility] Start: 06-03-2023 Depression Assessment Depression Ass essment [facility] Start: 02-01-2023 Influenza vaccination Influenza Vacc ine (#1) [facility] Start: 2022 Screening for osteoporosis Bone Density Screening [facility] Start: 02-01-2022 Influenza vaccination INFLUENZA (#1) [facility] Start: 06-03-2021 DEPRESSION ASSESSMENT DEPRESSION ASS ESSMENT [facility] Start: 06-01-2021 Mammography MAMMOGRAM [facility] Start: 06-01-2021 Screening for malign ant neoplasm of breast Mammogram Screening [facility] Start: 04-30-2021 Hepatitis B surface antibody level LDL CHOLESTEROL [facility] Start: 07-31-2020 Hemoglobin A1c measurement HbA1C [facility] Start: 07-31-2020 Hemoglobin A1c/Hemoglobin.total in Blood HBA1C [facility] Start: 08-10-2018 PAP TESTING PAP TESTING [facility] Start: 2017 RSV Vaccine (1 - 1-d ose 60+ series) RSV Vaccine (1 - 1-dose 60+ series) [facility] Start: 08-24-2015 Colonoscopy COLONOSCOPY [facility] Start: 08-24-2015 COLORECTAL CANCER SCREENING COLORECTAL CANCER SCREENING [facility] Start: 08-24-2015 Screening for malign ant neoplasm of colon [facility] Start: 12-29-2009 Hepatitis B screening URINE ALBUMIN:CREATININE RATIO [facility] Start: 2007 SHINGRIX VACCINE (1 of 2) SHINGRIX VACCINE (1 of 2) [facility] Start: 2002 COLOGUARD (FIT-DNA) COLOGUARD (FIT-D NA) [facility] Start: [address] COLONOGRAPHY [facility] Start: 2002 FECAL OCCULT BLOOD FECAL OCCULT BLOO D [facility] Start: 2002 Screening for malign ant neoplasm of colon [facility] Start: 2002 SIGMOIDOSCOPY SIGMOIDOSCOPY [facility] Start: 1987 HPV TESTING HPV TESTING [facility] Start: 1976 Urine microalbumin profile [facility] Start: 1975 ANNUAL PCP TEAM RECEIVING COORDINATOR LEXI DISEASE VISIT ANNUAL PCP TEAM CHRONIC DISEASE VISIT [facility] Start: 1975 BP CONTROLLED (<130/80) BP CONTROLLE D (<130/80) [facility] Start: 1967 3 comp foot exam completed DIABETIC FOOT EXAM [facility] Start: 1967 Diabetic foot examination Diabetic Foot Exam [facility] Start: 1967 Glaucoma screening Dilated Retinal E xam [facility] Start: 1967 Hepatitis C antibody , confirmatory test DILATED RETINAL EXAM [facility] Start: 1963 PNEUMOCOCCAL (1 - PCV) PNEUMOCOCCAL (1 - PCV) [facility] Start: 1963 Pneumococcal Vaccine : 65+ (1 of 2 - PCV) Pneumococcal Vaccine: 65+ (1 of 2 - PCV) [facility] Start: 1957 COVID-19 VACCINE (#1) COVID-19 VACCI NE (#1) [facility] SARS-CoV-2 (COVID-19 ) RNA [Presence] in Respiratory specimen by KULWANT with probe detection CAREGIVER COVID19 Microbiology Routine Sore throat Ordered: 04/24/2022 [facility] Work Phone: Comment on above: Ordered: 04/24/2022 [facility] Immunizations Immunization Date Immunization Notes Care Provider Nahun montejo 03-04-2018 influenza virus vacc ine, unspecified formulation Anaid Korduba PA-C Work Phone: [facility] 03-12-2017 influenza virus vacc ine, unspecified formulation Anaid Korduba PA-C Work Phone: [facility] 02-28-2016 influenza virus vacc ine, unspecified formulation Anaid Korduba PA-C Work Phone: [facility] 03-01-2015 influenza virus vacc ine, unspecified formulation Anaid Korduba PA-C Work Phone: [facility] Payers Date Payer Category Payer Medicare [id number] 2022 Medicare MEDICARE MEDICAR E A AND B [id number] 2022-Present [phone] [place] [address] Medicare [id number] 2022 Unknown [id number] 2021 Private Health Insurance [id number] Private Health Insurance AETNA MCR [id number] Private Health Insurance CLV CLI LEXI AETNA EHP*CAN'T SEE [id number] Self-pay SELF PAY INSURANCE [id number] Social History Date Type Detail Facility Start: 04-24-2022 [facility] Start: 04-24-2022 Tobacco use and exposure Smokeless tobacco non-user [facility] Start: 04-24-2022 End: 07-23-2023 Alcohol intake Current non-drinker of alcohol (finding) [facility] Start: 08-26-2013 Alcohol Comment none [facility] Start: 1955 Sex Assigned At Not on file C [facility] Start: 04-14-2022 End: 04-24-2022 Exposure to SARS-CoV-2 (event) Not sure [facility] Start: 1955 Sex Assigned At Female W [facility] Start: 07-15-2023 End: 07-23-2023 History of Social function [facility] Start: 07-15-2023 End: 07-23-2023 Tobacco use panel [facility] National Score (1-100), lower number is lower risk 53 [facility] Procedure Code Equipment Code Equipment Origin al Text Equipment Identifier Dates Jass Bn Smpx P Radpq Fd Strl - [id number] Start: 08-26-2013 Comment on above: Description: BONE CE MENT Comp Fem 6 Rt Kn Cr Jass Trthln - [id number] Start: 08-26-2013 Comment on above: Description: cruciat e retaining femoral Ins Tib 6 9mm X3 Cs Trthln - [id number] Start: 08-26-2013 Comment on above: Description: tibial bearing insert-cs Baseplt Tib Trth ln 6 Prim - [id number] Start: 08-26-2013 Comment on above: Description: tibial baseplate Stent Uret 6fr 24cm W/O Gw Inl - [id number] Start: 06-11-2015 Comment on above: Description: BARD IN LAY OPTIMA URETERAL STENT Stent Inlay Opti ma 6fr Taper 26cm Polymer Phreecoat [place] Green Ureteral - [id number] Start: 06-21-2015 Goals Date Patient Goal Desired Activity /State Personal health goal Comment on above: Formatting of this n ote might be different from the original. 2014 goal weight 192 Comment on above: Formatting of this n ote might be different from the original. 2014 goal weight 192 Clinical Notes 12-22-2014 to 08-02-2023 Kenyon Camargo APRN.STOCK PITCHER - 08/02/2023 7:16 PM Tiago Hendrickson MD - 07/23/2023 4:18 PM Tiago Hendrickson MD - 07/15/2023 4:10 PM ESTPatient Instructions Note Date & Type Note Facility 08-02-2023 Note HNO ID: [id number] Author: KENYON CAMARGO APRN.STOCK PITCHER Service: ? Author Type: Nurse Practitioner Type: Progress Notes Filed: 08/02/2023 19:32 Note Text: [facility] PATIENT NAME: Jerilyn Rossi DATE OF : 1955 TODAYS' DATE: 08/02/2023 Subjective: Ms. Rossi is a 68 year old female Patient presents with: Ear Pain: Right ear pain since jul 13 History of Present Illness: The history is provided by the patient. No foreign language interpreter was used. Ear Problem There is pain in the right ear. This is a new problem. The current episode started yesterday. The problem occurs every few hours. The problem has been unchanged. Pertinent negatives include no coughing, diarrhea, headaches, neck pain, rhinorrhea or vomiting. Associated symptoms comments: +ear wetness + ear congestion . Pt states last month she had cellulitis of right ear and was seen in [facility] and by ENT. Pt just finished Ciprodex ear drops couple days ago. Pt wants to make sure right ear is ok. Review of Systems: Review of Systems HENT: Negative for ear pain and rhinorrhea. Respiratory: Negative for cough. Gastrointestinal: Negative for diarrhea and vomiting. Musculoskeletal: Negative for neck pain. Neurological: Negative for headaches. Allergies: Allergies: Arnold Inhibitors Cough Cardizem [Diltiazem* Rash Sulfa (Sulfonamide * Rash Comment:Along with deep muscle burning. Sulfites Hives Comment:Sulfites in wine Past Medical History: PAST MEDICAL HISTORY Diagnosis Date DM type 2 goal A1C below 7.5 (HCC) Fatty liver disease, non-alcoholic HTN (hypertension) Hypogammaglobulinemia (HCC) IGG stable Knee pain, chronic RT OA (osteoarthritis) of knee Obesity Past Surgical History: PAST SURGICAL HISTORY Procedure Laterality Date ARTHRP KNE CONDYLEANDPLATU MEDIALANDLAT COMPARTMENTS 08/26/13 Knee replacement, total right BONE MARROW ASP 2011 CARDIAC CATH 03/2010 normal DELIVERY ONLY , low transverse CHOLECYSTECTOMY 08/2010 CHOLECYSTECTOMY HX CYSTOSCOPY 06/2015 with stent placement HYSTERECT[facility],[id number] 11/2009, 2010 right ORTHOPEDICS SURGERY HX VAGINAL HYSTERECTOMY UTERUS 250 GM/< 2000 Hysterectomy, vaginal Family History: FAMILY HISTORY Problem Relation Age of Onset other (heart disease [Other]) Mother 74 Heart Father Diabetes Father Breast Cancer Mother Hypertension Mother Hypertension Father Tobacco History: Tobacco Use: Never Medications: Current Outpatient Medications Medication Sig Dispense Refill gemfibrozil (LOPID) 600 mg tablet Take 1 tablet by mouth twice daily. 180 tablet 3 losartan (COZAAR) 100 mg tablet Take 1 tablet by mouth once daily 90 tablet 3 verapamil ER (VERELAN) 240 mg 24 hr capsule Take 1 capsule by mouth twice daily. 180 capsule 3 Clobetasol Propionate 0.05 % gel Apply twice a day for two weeks then as needed for flaring on the body 60 g 5 tacrolimus (PROTOPIC) 0.1 % ointment Apply to affected areas of the face twice a day as needed 30 g 1 verapamil ER (VERELAN) 240 mg 24 hr capsule Take 1 capsule by mouth twice daily. 180 capsule 3 losartan (COZAAR) 100 mg tablet Take 1 tablet by mouth once daily. 90 tablet 3 gemfibrozil (LOPID) 600 mg tablet Take 1 tablet by mouth twice daily. 180 tablet 3 baclofen (LIORESAL) 5 mg tablet Take 1 tablet by mouth three times daily as needed for spasms. May take 1-2 tablets up to three times daily. 60 tablet 4 amoxicillin (POLYMOX, AMOXIL) 500 mg capsule Take 4 capsules by mouth 60 minutes prior to dental appointment. 12 capsule 3 verapamil ER (VERELAN) 240 mg 24 hr capsule Take 1 capsule by mouth twice daily 180 capsule 3 losartan (COZAAR) 100 mg tablet Take 1 tablet by mouth once daily 90 tablet 3 benzonatate (TESSALON PERLES) 100 mg capsule Take 1 capsule by mouth three times daily as needed. 30 capsule 0 valsartan (DIOVAN) 320 mg tablet Take 320 mg by mouth once daily. diclofenac sodium (VOLTAREN) 1 % topical gel 4 g twice daily as needed (for pain). As Directed. 2 Tube 0 verapamil SR (CALAN SR, ISOPTIN SR) 240 mg CR tablet Take 1 tablet by mouth twice daily. 180 tablet 3 gemfibrozil (LOPID) 600 mg tablet Take 1 tablet by mouth twice daily. 180 tablet 3 ascorbic acid 500 mg tablet Take 1 tablet by mouth twice daily. 14 tablet 0 COMPOUNDED PRESCRIPTION Multiple vitamin supplements. ciprofloxacin HCl (CILOXAN) 0.3 % ophthalmic solution Instill 5 Drops two times a day into the Right ear (Patient not taking: Reported on 08/02/2023) 10 mL 1 gemfibrozil (LOPID) 600 mg tablet Take 1 tablet by mouth twice daily (Patient not taking: Reported on 07/23/2023) 180 tablet 3 amoxicillin (POLYMOX, AMOXIL) 500 mg capsule Take 4 capsules by mouth one hour prior to appointment. (Patient not taking: Reported on 07/23/2023) 16 capsule 1 amoxicillin (POLYMOX, AMOXIL) 500 mg capsule Take 4 capsules by mouth 1 hour (more content not included)... [facility] 08-02-2023 History of Presen t illness Narrative Images from the original note were not included. [facility] PATIENT NAME: Jerilyn Rossi DATE OF : 1955 TODAYS' DATE: 08/02/2023 Subjective: Ms. Rossi is a 68 year old female Patient presents with: Ear Pain: Right ear pain since jul 13 History of Present Illness: The history is provided by the patient. No foreign language interpreter was used. Ear Problem There is pain in the right ear. This is a new problem. The current episode started yesterday. The problem occurs every few hours. The problem has been unchanged. Pertinent negatives include no coughing, diarrhea, headaches, neck pain, rhinorrhea or vomiting. Associated symptoms comments: +ear wetness + ear congestion . Pt states last month she had cellulitis of right ear and was seen in [facility] and by ENT. Pt just finished Ciprodex ear drops couple days ago. Pt wants to make sure right ear is ok. Review of Systems: Review of Systems HENT: Negative for ear pain and rhinorrhea. Respiratory: Negative for cough. Gastrointestinal: Negative for diarrhea and vomiting. Musculoskeletal: Negative for neck pain. Neurological: Negative for headaches. Allergies: Allergies: Arnold Inhibitors Cough Cardizem [Diltiazem* Rash Sulfa (Sulfonamide * Rash Comment:Along with deep muscle burning. Sulfites Hives Comment:Sulfites in wine Past Medical History: PAST MEDICAL HISTORY Diagnosis Date DM type 2 goal A1C below 7.5 (HCC) Fatty liver disease, non-alcoholic HTN (hypertension) Hypogammaglobulinemia (HCC) IGG stable Knee pain, chronic RT OA (osteoarthritis) of knee Obesity Past Surgical History: PAST SURGICAL HISTORY Procedure Laterality Date ARTHRP KNE CONDYLE&PLATU MEDIAL&LAT COMPARTMENTS 08/26/13 Knee replacement, total right BONE MARROW ASP 2011 CARDIAC CATH 03/2010 normal DELIVERY ONLY , low transverse CHOLECYSTECTOMY 08/2010 CHOLECYSTECTOMY HX CYSTOSCOPY 06/2015 with stent placement HYSTERECTOMY HX HYSTEROSCOPY with D&C MENISCAL REPAIR BALA,VINCENT,[id number] 11/2009, 2010 right ORTHOPEDICS SURGERY HX VAGINAL HYSTERECTOMY UTERUS 250 GM/< 2000 Hysterectomy, vaginal Family History: FAMILY HISTORY Problem Relation Age of Onset other (heart disease [Other]) Mother 74 Heart Father Diabetes Father Breast Cancer Mother Hypertension Mother Hypertension Father Tobacco History: Tobacco Use: Never Medications: Current Outpatient Medications Medication Sig Dispense Refill gemfibrozil (LOPID) 600 mg tablet Take 1 tablet by mouth twice daily. 180 tablet 3 losartan (COZAAR) 100 mg tablet Take 1 tablet by mouth once daily 90 tablet 3 verapamil ER (VERELAN) 240 mg 24 hr capsule Take 1 capsule by mouth twice daily. 180 capsule 3 Clobetasol Propionate 0.05 % gel Apply twice a day for two weeks then as needed for flaring on the body 60 g 5 tacrolimus (PROTOPIC) 0.1 % ointment Apply to affected areas of the face twice a day as needed 30 g 1 verapamil ER (VERELAN) 240 mg 24 hr capsule Take 1 capsule by mouth twice daily. 180 capsule 3 losartan (COZAAR) 100 mg tablet Take 1 tablet by mouth once daily. 90 tablet 3 gemfibrozil (LOPID) 600 mg tablet Take 1 tablet by mouth twice daily. 180 tablet 3 baclofen (LIORESAL) 5 mg tablet Take 1 tablet by mouth three times daily as needed for spasms. May take 1-2 tablets up to three times daily. 60 tablet 4 amoxicillin (POLYMOX, AMOXIL) 500 mg capsule Take 4 capsules by mouth 60 minutes prior to dental appointment. 12 capsule 3 verapamil ER (VERELAN) 240 mg 24 hr capsule Take 1 capsule by mouth twice daily 180 capsule 3 losartan (COZAAR) 100 mg tablet Take 1 tablet by mouth once daily 90 tablet 3 benzonatate (TESSALON PERLES) 100 mg capsule Take 1 capsule by mouth three times daily as needed. 30 capsule 0 valsartan (DIOVAN) 320 mg tablet Take 320 mg by mouth once daily. diclofenac sodium (VOLTAREN) 1 % topical gel 4 g twice daily as needed (for pain). As Directed. 2 Tube 0 verapamil SR (CALAN SR, ISOPTIN SR) 240 mg CR tablet Take 1 tablet by mouth twice daily. 180 tablet 3 gemfibrozil (LOPID) 600 mg tablet Take 1 tablet by mouth twice daily. 180 tablet 3 ascorbic acid 500 mg tablet Take 1 tablet by mouth twice daily. 14 tablet 0 COMPOUNDED PRESCRIPTION Multiple vitamin supplements. ciprofloxacin HCl (CILOXAN) 0.3 % ophthalmic solution Instill 5 Drops two times a day into the Right ear (Patient not taking: Reported on 08/02/2023) 10 mL 1 gemfibrozil (LOPID) 600 mg tablet Take 1 tablet by mouth twice daily (Patient not taking: Reported on 07/23/2023) 180 tablet 3 amoxicillin (POLYMOX, AMOXIL) 500 mg capsule Take 4 capsules by mouth one hour prior to appointment. (Patient not taking: Reported on 07/23/2023) 16 capsule 1 amoxicillin (POLYMOX, AMOXIL) 500 mg capsule Take 4 capsules by mouth 1 hour prior to appointment (Patient not taking: Reported on 07/23/2023) 12 capsule 1 verapamil ER (VERELAN) 240 mg 24 hr capsule TAKE ONE CAPSULE BY MOUTH TWICE DAILY. 180 capsule 3 losartan (COZAAR) 100 mg tablet TAKE 1 TABLET BY MOUTH ONCE DAILY. 90 tablet 3 gemfibrozil (LOPID) 600 mg tablet TAKE 1 TABLET BY MOUTH TWICE DAILY 180 tablet 3 NUTRITIONAL SUPPLEMENT/FIBER (JUICE PLUS FIBRE ORAL) Take by mouth. (Patient not taking: Reported on 04/24/2022) No current facility-administered medications for this visit. Vitals: BP 152/86 Pulse 92 Temp 36.9 C (98.4 F) (Tympanic) Resp 16 SpO2 98% Physical Exam: Physical Exam Vitals and nursing note reviewed. Constitutional: General: She is not in acute distress. HENT: Head: Normocephalic. Right Ear: Ear canal and external ear normal. A middle ear effusion (clear fluid) is present. Left Ear: Tympanic membrane, ear canal and external ear normal. Cardiovascular: Rate and Rhythm: Normal rate and regular rhythm. Pulmonary: Effort: Pulmonary effort is normal. Breath sounds: Normal breath sounds. Neurological: Mental Status: She is alert. Psychiatric: Behavior: Behavior is cooperative. ASSESSMENT/PLAN: 1. Eustachian tube dysfunction, right - ICD9: 381.81, ICD10: H69.91 -OTC Claritin, or Zyrtec or Flonase as needed for symptoms -pt education along with discharge instructions given to pt -pt agreeable with plan -follow-up if symptoms don't improve in 3-5 days or get worse Kenyon Camargo APRN.CNP 08/02/23 7:16 PM documented in this encounter [facility] 07-23-2023 Note HNO ID: [id number] Author: TIAGO BE MD Service: ? Author Type: Physician Type: Progress Notes Filed: 07/23/2023 16:33 Note Text: History: Jerilyn Rossi, a 68 year old female, presents for f/up R OE w fac cellulitis. Completed doxy, using cipro gtts. Pain near resolved. Hearing improved. Denies drainage, nasal congestion, runny-nose, post-nasal drip. No history of noise exposure. No history of ear infections. No history of ear surgery. No history of ear trauma. No history of allergies. PE: Alert; oriented; well-developed; no apparent distress. Normal voice; normal communication. Face: no erythema or edema. Ears: R: Min dried debris cleaned. Min erythema EAC. TM clear and mobile. L: EAC free of lesions. TM clear and mobile. Assessment/Plan: R OE with facial cellulitis. Cellulitis resolved. OE near resolved. Min debris cleaned. Rec cont cipro gtts 1 more wk. Water precautions. F/up prn. Medical Decision Making: Problems: Low: Acute, uncomplicated illness or injury Risk: Low: Low risk from testing/treatment Medical Decision Making Level: 3 - Low [facility] 07-23-2023 History of Presen t illness Narrative History: Jerilyn Rossi, a 68 year old female, presents for f/up R OE w fac cellulitis. Completed doxy, using cipro gtts. Pain near resolved. Hearing improved. Denies drainage, nasal congestion, runny-nose, post-nasal drip. No history of noise exposure. No history of ear infections. No history of ear surgery. No history of ear trauma. No history of allergies. PE: Alert; oriented; well-developed; no apparent distress. Normal voice; normal communication. Face: no erythema or edema. Ears: R: Min dried debris cleaned. Min erythema EAC. TM clear and mobile. L: EAC free of lesions. TM clear and mobile. Assessment/Plan: R OE with facial cellulitis. Cellulitis resolved. OE near resolved. Min debris cleaned. Rec cont cipro gtts 1 more wk. Water precautions. F/up prn. Medical Decision Making: Problems: Low: Acute, uncomplicated illness or injury Risk: Low: Low risk from testing/treatment Medical Decision Making Level: 3 - Low documented in this encounter [facility] 07-15-2023 Note HNO ID: [id number] Author: TIAGO BE MD Service: ? Author Type: Physician Type: Progress Notes Filed: 07/15/2023 17:00 Note Text: History: Jerilyn Rossi is seen at the request of Dr. Tiago Rodriguez. Jerilyn Rossi, a 68 year old female, presents for evaluation of R ear swelling/pain, dec hearing starting 2 d ago. Started doxy. Pain and swelling improving. Denies drainage, nasal congestion, runny-nose, post-nasal drip. No history of noise exposure. No history of ear infections. No history of ear surgery. No history of ear trauma. No history of allergies. PAST MEDICAL HISTORY Diagnosis Date DM type 2 goal A1C below 7.5 (HCC) Fatty liver disease, non-alcoholic HTN (hypertension) Hypogammaglobulinemia (HCC) IGG stable Knee pain, chronic RT OA (osteoarthritis) of knee Obesity PAST SURGICAL HISTORY Procedure Laterality Date ARTHRP KNE CONDYLEANDPLATU MEDIALANDLAT COMPARTMENTS 08/26/13 Knee replacement, total right BONE MARROW ASP 2011 CARDIAC CATH 03/2010 normal DELIVERY ONLY , low transverse CHOLECYSTECTOMY 08/2010 CHOLECYSTECTOMY HX CYSTOSCOPY 06/2015 with stent placement HYSTERECTOMY HX HYSTEROSCOPY with [facility] MENISCAL REPAIR SYS,CD,[id number] 11/2009, 2010 right ORTHOPEDICS SURGERY HX VAGINAL HYSTERECTOMY UTERUS 250 GM/< 2000 Hysterectomy, vaginal PE: Alert; oriented; well-developed; no apparent distress. Normal voice; normal communication. Nose: patent, normal mucosa, no congestion, no rhinorrhea. Oral cavity, oropharynx: No ulcerative or mass lesions, tongue midline, palate elevates symmetrically, tongue base and floor of mouth soft. Neck: nontender, no lymphadenopathy or masses. Thyroid: no masses. Face: symmetric, sinuses nontender, see ear. Salivary glands: normal size, nontender, no masses. Ears: R: Mild diffuse erythema of pinna. Mild erythema an edema 3 cm ant to R ear. Mild debris in EAC - cleaned. Mild EAC edema and erythema. TM clear and mobile. L: EAC free of lesions. TM clear and mobile. Assessment/Plan: R OE with facial cellulitis. Improving on doxy. Cont doxy 10 d. Add cipro gtts. F/up 1 wk. CC: Jennifer Medical Decision Making: Problems: Low: Acute, uncomplicated illness or injury Risk: Moderate: Drug management Medical Decision Making Level: 3 - Low [facility] 07-15-2023 History of Presen t illness Narrative History: Jerilyn Rossi is seen at the request of Dr. Tiago Rodriguez. Jerilyn Rossi, a 68 year old female, presents for evaluation of R ear swelling/pain, dec hearing starting 2 d ago. Started doxy. Pain and swelling improving. Denies drainage, nasal congestion, runny-nose, post-nasal drip. No history of noise exposure. No history of ear infections. No history of ear surgery. No history of ear trauma. No history of allergies. PAST MEDICAL HISTORY Diagnosis Date DM type 2 goal A1C below 7.5 (HCC) Fatty liver disease, non-alcoholic HTN (hypertension) Hypogammaglobulinemia (HCC) IGG stable Knee pain, chronic RT OA (osteoarthritis) of knee Obesity PAST SURGICAL HISTORY Procedure Laterality Date ARTHRP KNE CONDYLE&PLATU MEDIAL&LAT COMPARTMENTS 08/26/13 Knee replacement, total right BONE MARROW ASP 2011 CARDIAC CATH 03/2010 normal DELIVERY ONLY , low transverse CHOLECYSTECTOMY 08/2010 CHOLECYSTECTOMY HX CYSTOSCOPY 06/2015 with stent placement HYSTERECTOMY HX HYSTEROSCOPY with D&C MENISCAL REPAIR SYS,CD,[id number] 11/2009, 2010 right ORTHOPEDICS SURGERY HX VAGINAL HYSTERECTOMY UTERUS 250 GM/< 2000 Hysterectomy, vaginal PE: Alert; oriented; well-developed; no apparent distress. Normal voice; normal communication. Nose: patent, normal mucosa, no congestion, no rhinorrhea. Oral cavity, oropharynx: No ulcerative or mass lesions, tongue midline, palate elevates symmetrically, tongue base and floor of mouth soft. Neck: nontender, no lymphadenopathy or masses. Thyroid: no masses. Face: symmetric, sinuses nontender, see ear. Salivary glands: normal size, nontender, no masses. Ears: R: Mild diffuse erythema of pinna. Mild erythema an edema 3 cm ant to R ear. Mild debris in EAC - cleaned. Mild EAC edema and erythema. TM clear and mobile. L: EAC free of lesions. TM clear and mobile. Assessment/Plan: R OE with facial cellulitis. Improving on doxy. Cont doxy 10 d. Add cipro gtts. F/up 1 wk. CC: Jennifer Medical Decision Making: Problems: Low: Acute, uncomplicated illness or injury Risk: Moderate: Drug management Medical Decision Making Level: 3 - Low documented in this encounter [facility] 07-13-2023 Note HNO ID: [id number] Author: TIAGO RODRIGUEZ MD Service: ? Author Type: Physician Type: Progress Notes Filed: 07/13/2023 10:13 Note Text: This note was created using [employer]. Subjective Jerilyn Rossi is a 68 year old female. The history is provided by the patient. Ear Pain This is a new problem. The current episode started today. The problem has been rapidly worsening. Associated symptoms include swollen glands. Pertinent negatives include no fatigue, fever or sore throat. Associated symptoms comments: Right ear lobe was a little tender last night when she went to bed. The pain woke her up at 4 am. No fever. Has right neck pain along the lymph nodes.. Nothing aggravates the symptoms. She has tried nothing for the symptoms. Review of Systems Constitutional: Negative for fatigue and fever. HENT: Negative for sore throat. Objective BP 160/91 Pulse 100 Temp 37.5 ?C (99.5 ?F) Resp 18 SpO2 97% Physical Exam Vitals and nursing note reviewed. Constitutional: General: She is not in acute distress. Appearance: Normal appearance. She is not ill-appearing, toxic-appearing or diaphoretic. HENT: Head: Normocephalic and atraumatic. Right Ear: Tenderness present. Ears: Comments: Red, indurated, swollen. No abscess. Lymphadenopathy: Cervical: Cervical adenopathy present. Right cervical: Superficial cervical adenopathy and deep cervical adenopathy present. Neurological: Mental Status: She is alert. Assessment and Plan (H60.12) Cellulitis of left external ear (primary encounter diagnosis) Comment: Plan: doxycycline monohydrate (MONODOX) 100 mg capsule, CONSULT TO ENT [facility] 04-24-2022 Instructions Anaid Long PA-C - 04/24/2022 8:47 AM EST SORE THROAT INSTRUCTIONS SORE THROAT OVERVIEW - Sore throat is a common problem during childhood, and is usually the result of a bacterial or viral infection. Although sore throat usually resolves without complications, it sometimes requires treatment with an antibiotic. There are some less common causes of sore throat that are serious or even life-threatening. This topic will discuss the most common causes and treatments of sore throat in children, as well as the warning signs of more serious conditions. SORE THROAT CAUSES - The most likely cause of a child's sore throat depends upon the child's age, the season, and the geographic area. While viruses are the most common cause of sore throat, bacteria are another common cause. Bacteria and viruses are spread from one person to another through hand contact. Hands get contaminated when the sick individual touches their nose or mouth and then touches another person directly (ulqt-dl-ekam contact) or indirectly (tvyf-ua-lptpfn, such as doorknob, telephone, toys). It is difficult to determine the cause of sore throat based upon symptoms alone; an examination and laboratory test are recommended in most cases Viruses - There are many viruses that can cause pain and swelling of the throat. The most common include viruses that cause sore throat as part of an upper respiratory infection, such as the common cold. Other viruses that cause sore throat include influenza, adenovirus, and Ember-Strickland virus (the cause of mononucleosis). Symptoms - Symptoms that may occur with a viral infection can include a runny nose and congestion, irritation or redness of the eyes, cough, hoarseness, soreness in the roof of the mouth, a skin rash, or diarrhea. In addition, children with viral infections may have a fever and may feel miserable. A high fever does not necessarily mean that the child has a bacterial infection. Group A streptococcus - Group A streptococcus (GAS) is the name of the bacterium that causes strep throat. Although other bacteria can cause a sore throat, GAS is the most common bacterial cause; up to 30 percent of children with a sore throat will have GAS. Strep throat usually occurs during the winter and early spring, and is most common in school-age children and their younger siblings. Symptoms - Symptoms of strep throat in children older than 3 years often develop suddenly and include fever (temperature ?100.4 F or 38 C), headache, abdominal pain, nausea, and vomiting. Other symptoms can include swollen glands in the neck, white patches of pus in the back or sides of the throat, small red spots on the roof of the mouth, and swelling of the uvula. A cough and cold are not commonly seen in children with strep throat. Strep throat is uncommon in children younger than age 2 to 3 years. However, GAS infection can occur in younger children, and may cause a runny nose and congestion that is prolonged, low-grade fever (?101 F or 38.3 C), and tender glands in the neck. Infants younger than 1 year may be fussy and have a decreased appetite and low-grade fever. SORE THROAT TREATMENT - The treatment of sore throat depends upon the cause; strep throat is treated with an antibiotic while viral pharyngitis is treated with rest, pain relievers, and other measures to reduce symptoms. Strep throat - Strep throat is usually treated with an antibiotic, such as penicillin, or an antibiotic similar to penicillin (eg, amoxicillin). Children who are allergic to penicillin will be given an alternate antibiotic. The antibiotic is usually given in pill or liquid form two or three times per day. A one-time injection is also available, and may be recommended if a child is unwilling to take an oral medication. After completing 24 hours of antibiotics, the child is no longer contagious and may return to school. Symptoms usually improve within 1 to 2 days. However, it is important for the child to finish the entire course of treatment (usually 10 days). If a child does not begin to improve or worsens within 3 days, the child should be reevaluated. Throat pain can be treated with a non-prescription pain medication, if needed. (See 'Pain medications' below.) In addition, parents should monitor their child for dehydration, which can develop if the child is not willing to drink or eat due to a sore throat. (See 'Monitor for dehydration' below.) Viral throat pain - Sore throat caused by viral infections usually last 4 to 5 days. During this time, treatments to reduce pain may be helpful but will not help to eliminate the virus. Antibiotics do not improve throat pain caused by a virus and are not recommended. A child with a viral infection is usually allowed to return to school when there has been no fever for 24 hours and the child feels well enough to pay attention. Pain medications - Throat pain can be treated with a mild pain reliever such as acetaminophen (Tylenol ) or a non-steroidal anti-inflammatory agent such as ibuprofen (Motrin ). These medications should be dosed according to weight, not age. Aspirin is not recommended for children <18 years due to the risk of a potentially serious condition known as Zo syndrome. Monitor for dehydration - Some children with a sore throat are reluctant to drink or eat due to pain. Drinking less fluid can lead to dehydration. To reduce the risk of dehydration, parents can offer warm or cold liquids. (See 'Other interventions' below.) Signs and symptoms of mild dehydration include a slightly dry mouth, increased thirst, and decreased urine output (one wet diaper or void in six hours). Signs of moderate or severe dehydration include decreased urine output (less than one wet diaper or void in six hours), lack of tears when crying, dry mouth, and sunken eyes. A child who is moderately or severely dehydrated should be evaluated by a healthcare provider as soon as possible to determine if treatment is needed. Oral rinses- Salt-water gargles are an old stand-by for relief of throat pain. It is not clear if this treatment is effective, but it is unlikely to be harmful. Most recipes suggest 1/4 to 1/2 teaspoon of salt per cup (8 ounces) of warm water. The water should be gargled and then spit out (not swallowed). Children younger than six to eight years are not able to gargle properly. An oral rinse composed of equal parts of diphenhydramine (Benadryl liquid) and Maalox (magnesium hydroxide, aluminum hydroxide, and simethicone) may be helpful for pain caused by a sore mouth or ulcers in the mouth. Children older than six to eight years may swish and spit (not swallow) the mixture. Sprays - Sprays containing topical anesthetics are available to treat sore throat. However, such sprays are no more effective than sucking on hard candy. In addition, a common anesthetic ingredient, benzocaine, can cause allergic reactions. We do not recommend throat sprays for children. Lozenges - A variety of medicated throat lozenges are available to relieve dryness or pain. However, it is not clear that lozenges work any better than hard candy. We do not recommend throat lozenges for children, especially children younger than 3 to 4 years, who can choke. Sucking on hard candy may provide some relief for children older than 3 to 4 years, who are not at risk for choking. Other interventions - Other interventions include sipping warm beverages (eg, honey or lemon tea, chicken soup), cold beverages, or eating cold or frozen desserts (eg, ice cream, popsicles). These treatments are safe for children. Honey should not be given to children younger than 12 months due to the potential risk of botulism poisoning. Alternative therapies - Health food stores, vitamin outlets, and Internet Web sites offer alternative treatments for relief of sore throat pain. We do not recommend these treatments due to the risks of contamination with pesticides/herbicides, inaccurate labeling and dosing information, and a lack of studies showing that these treatments are safe and effective. SORE THROAT PREVENTION - Hand washing is an essential and highly effective way to prevent the spread of infection. Hands should be wet with water and plain soap, and rubbed together for 15 to 30 seconds. Special attention should be paid to the fingernails, between the fingers, and the wrists. Hands should be rinsed thoroughly, and dried with a single use towel. Alcohol-based hand rubs are a good alternative for disinfecting hands if a sink is not available. Hand rubs should be spread over the entire surface of hands, fingers, and wrists until dry, and may be used several times. These rubs can be used repeatedly without skin irritation or loss of effectiveness. Hand rubs are available as a liquid or wipe in small, portable sizes that are easy to carry in a pocket or handbag. When a sink is available, visibly soiled hands should be washed with soap and water. Hands should be washed after coughing, blowing the nose or sneezing. While it is not always possible to limit contact with a person who is sick, avoiding touching the eyes, nose, or mouth after direct contact can help to prevent the spread of infection. In addition, tissues should be used to cover the mouth when sneezing or coughing. These used tissues should be disposed of promptly. Sneezing/coughing into the sleeve of one's clothing (at the inner elbow) is another means of containing sprays of saliva and secretions and has the advantage of not contaminating the hands. WHEN TO SEEK HELP - Parents of a child with throat pain and one or more of the following should contact their healthcare provider immediately: Difficulty swallowing or breathing Excessive drooling in an infant or young child Temperature ?101 F or 38.3 C Swelling of the neck Child is unable or unwilling to drink or eat Voice sounds muffled Child has a stiff neck or difficulty opening the mouth WHERE TO GET MORE INFORMATION - Your child's healthcare provider is the best source of information for questions and concerns related to your child's medical problem. This article will be updated as needed every four months on our web site ([email or web address]). Information below was obtained from Up to date Last literature review version 19.2: October 2010 This topic last updated: January 18, 2010 documented in this encounter [facility] 04-24-2022 History of Presen t illness Narrative SUBJECTIVE Jerilyn Rossi is a 66 year old female who presents with 3 days of symptoms that are stable. Symptoms include: Fever (?100.4F): No or Chills: No Cough: No Headache: No Sore throat: Yes. Right side only Nasal congestion: No or Rhinorrhea: No Right ear pain PAST MEDICAL HISTORY Diagnosis Date DM type 2 goal A1C below 7.5 (HCC) Fatty liver disease, non-alcoholic HTN (hypertension) Hypogammaglobulinemia (HCC) IGG stable Knee pain, chronic RT OA (osteoarthritis) of knee Obesity PAST SURGICAL HISTORY Procedure Laterality Date ARTHRP KNE CONDYLE&PLATU MEDIAL&LAT COMPARTMENTS 08/26/13 Knee replacement, total right BONE MARROW ASP 2011 CARDIAC CATH 03/2010 normal DELIVERY ONLY , low transverse CHOLECYSTECTOMY 08/2010 CHOLECYSTECTOMY HX CYSTOSCOPY 06/2015 with stent placement HYSTERECTOMY HX HYSTEROSCOPY with D&C MENISCAL REPAIR SYGillian,CD,[id number] 11/2009, 2010 right ORTHOPEDICS SURGERY HX VAGINAL HYSTERECTOMY UTERUS 250 GM/< 2000 Hysterectomy, vaginal ALLERGIES Arnold Inhibitors, Cardizem [Diltiazem Hcl], Sulfa (Sulfonamide Antibiotics), and Sulfites MEDICATIONS verapamil ER (VERELAN) 240 mg 24 hr capsule Take 1 capsule by mouth twice daily. losartan (COZAAR) 100 mg tablet Take 1 tablet by mouth once daily. gemfibrozil (LOPID) 600 mg tablet Take 1 tablet by mouth twice daily. baclofen (LIORESAL) 5 mg tablet Take 1 tablet by mouth three times daily as needed for spasms. May take 1-2 tablets up to three times daily. amoxicillin (POLYMOX, AMOXIL) 500 mg capsule Take 4 capsules by mouth 60 minutes prior to dental appointment. verapamil ER (VERELAN) 240 mg 24 hr capsule Take 1 capsule by mouth twice daily losartan (COZAAR) 100 mg tablet Take 1 tablet by mouth once daily gemfibrozil (LOPID) 600 mg tablet Take 1 tablet by mouth twice daily amoxicillin (POLYMOX, AMOXIL) 500 mg capsule Take 4 capsules by mouth one hour prior to appointment. amoxicillin (POLYMOX, AMOXIL) 500 mg capsule Take 4 capsules by mouth 1 hour prior to appointment verapamil SR (CALAN SR, ISOPTIN SR) 240 mg CR tablet Take 1 tablet by mouth twice daily. gemfibrozil (LOPID) 600 mg tablet Take 1 tablet by mouth twice daily. ascorbic acid 500 mg tablet Take 1 tablet by mouth twice daily. COMPOUNDED PRESCRIPTION Multiple vitamin supplements. verapamil ER (VERELAN) 240 mg 24 hr capsule TAKE ONE CAPSULE BY MOUTH TWICE DAILY. losartan (COZAAR) 100 mg tablet TAKE 1 TABLET BY MOUTH ONCE DAILY. gemfibrozil (LOPID) 600 mg tablet TAKE 1 TABLET BY MOUTH TWICE DAILY benzonatate (TESSALON PERLES) 100 mg capsule Take 1 capsule by mouth three times daily as needed. (Patient not taking: Reported on 04/24/2022) valsartan (DIOVAN) 320 mg tablet Take 320 mg by mouth once daily. (Patient not taking: Reported on 04/24/2022) NUTRITIONAL SUPPLEMENT/FIBER (JUICE PLUS FIBRE ORAL) Take by mouth. (Patient not taking: Reported on 04/24/2022) diclofenac sodium (VOLTAREN) 1 % topical gel 4 g twice daily as needed (for pain). As Directed. (Patient not taking: Reported on 04/24/2022) FAMILY HISTORY Problem Relation Age of Onset other (heart disease [Other]) Mother 74 Heart Father Diabetes Father Breast Cancer Mother Hypertension Mother Hypertension Father Social History Tobacco Use Smoking status: Never Smokeless tobacco: Never Substance Use Topics Alcohol use: No Comment: none Drug use: No Exposures: Sick contacts? No She reports that she has never smoked. She has never used smokeless tobacco. OBJECTIVE BP 138/83 Pulse 84 Temp 36.6 C (97.9 F) Resp 18 Wt 85.8 kg (189 lb 4 oz) SpO2 97% BMI 31.49 kg/m GENERAL: well appearing, alert, in no acute distress HEENT: no conjunctival injection, pupils equal, moist mucous membranes, oropharynx clear without erythema, and TMs clear bilaterally. No mastoid tenderness. Uvula midline without deviation. No peritonsilar abscess. No drooling. No cervical lymphadenopathy PULMONARY: breathing comfortably on room air , no coughing noted, no wheezing noted, and lungs CTA bilaterally Heart: RRR. Soft, systolic murmur ASSESSMENT/PLAN ASSESSMENT/PLAN: 1. Sore throat - ICD9: 462, ICD10: J02.9 - Alere Strep Test neg, no culture pending - Discussed supportive care treatment with fluids, rest and analgesia. - Call back if drooling, increased temperature, symptoms of dehydration and/or still sick in one week - STREP A MOLECULAR (POC) - CAREGIVER COVID19 Anaid Long PA-C - COVID swab collected at time of office visit - Instructed to isolate pending test results - Discussed symptom monitoring and supportive care - Red flag symptoms requiring follow up discussed documented in this encounter [facility] 12-22-2014 History of Past i llness Narrative Problem Noted Date Resolved Date Counseling and coordination of care 12/22/2014 04/06/2015 Knee pain, right 09/30/2013 06/17/2015 Trochanteric bursitis of left hip 04/20/2013 06/17/2015 Hip pain 04/20/2013 06/17/2015 Knee pain 04/20/2013 06/17/2015 Arthritis of knee, right 04/20/2011 016 S/P arthroscopy of knee 04/20/2011 06/17/19 16 Medial meniscus tear 04/20/2011 06/17/2015 Type 2 diabetes mellitus 10/24/2010 015 Right knee pain 10/10/2010 06/17/2015 documented as of this encounter (statuses as of 04/24/2022) [facility]07-[facility]2015 History of Past illness Narrative* Problem Noted Date Diagnosed Date Resolved Date Counseling and coordination of care 12/22/2014 04/06/2015 Knee pain, right 09/30/2013 06/17/2015 Trochanteric bursitis of left hip 04/20/2013 06/17/2015 Hip pain 04/20/2013 06/17/2015 Knee pain 04/20/2013 06/17/2015 Arthritis of knee, right 04/20/2011 S/P arthroscopy of knee 04/20/201106/03 Medial meniscus tear 04/20/2011 016 Type 2 diabetes mellitus 10/24/2010 Right knee pain 10/10/2010 06/17/2015 documented as of this encounter (statuses as of 07/16/2023) [facility] History of Past illness Narrative* Problem Noted Date Diagnosed Date Resolved Date Counseling and coordination of care 12/22/2014 04/06/2015 Knee pain, right 09/30/2013 06/17/2015 Trochanteric bursitis of left hip 04/20/2013 06/17/2015 Hip pain 04/20/2013 06/17/2015 Knee pain 04/20/2013 06/17/2015 Arthritis of knee, right 04/20/2011 S/P arthroscopy of knee 04/20/201106/03 Medial meniscus tear 04/20/2011 016 Type 2 diabetes mellitus 10/24/2010 Right knee pain 10/10/2010 06/17/2015 documented as of this encounter (statuses as of 07/23/2023) [facility] History of Past illness Narrative* Problem Noted Date Diagnosed Date Resolved Date Counseling and coordination of care 12/22/2014 04/06/2015 Knee pain, right 09/30/2013 06/17/2015 Trochanteric bursitis of left hip 04/20/2013 06/17/2015 Hip pain 04/20/2013 06/17/2015 Knee pain 04/20/2013 06/17/2015 Arthritis of knee, right 04/20/2011 S/P arthroscopy of knee 04/20/201106/03 Medial meniscus tear 04/20/2011 016 Type 2 diabetes mellitus 10/24/2010 Right knee pain 10/10/2010 06/17/2015 documented as of this encounter (statuses as of 08/02/2023) [facility] note* Diagnosis Sore throat- Primary Acute pharyngitis documented in this encounter [facility] note* Diagnosis Onset Date Resolution Status Hyperlipemia acute Hypertension [facility] Work Phone: Evaluation note* Diagnosis Acute otitis externa of right ear, unspecified type- Primary Cellulitis of left external ear Infective otitis externa, unspecified documented in this encounter [facility] note* Diagnosis Acute otitis externa of right ear, unspecified type- Primary documented in this encounter [facility] note* Diagnosis Eustachian tube dysfunction, right- Primary documented in this encounter [facility] Summary Purpose Family History No Family History Records Found Relationship Condition Age at Onset Recorded Date/T ad mother Lupus erythematosus Unknown Cardiovascular disease Unknown Malignant neoplasm of breast Unknown Coronary artery disease Unknown father Diabetes mellitus Unknown sister Cardiac arrhythmia Unknown Advance Directives No Advanced Directives Records FoundNo Advanced Directives Records Found Chief Complaint and Reason for Visit Chief Complaint medication refills Reason for Visit Hyperlipemia Hypertension Additional Source Comments INFORMATION SOURCE (unrecogn ized section and content) DATE CREATED AUTHOR 10/01/2021 [facility] DATE CREATED AUTHOR AUTHOR'S ORGANIZ ATION 08/04/2023 [facility] Source Comments (unrecognize d section and content) In the event this informatio n is protected by the Federal Confidentiality of Alcohol and Drug Abuse Patient Records regulations: The Federal rules restrict any use of the information to criminally investigate or prosecute any alcohol or drug abuse patient.[facility] the event this information is protected by the Federal Confidentiality of Alcohol and Drug Abuse Patient Records regulations: The Federal rules restrict any use of the information to criminally investigate or prosecute any alcohol or drug abuse patient.[facility] the event this information is protected by the Federal Confidentiality of Alcohol and Drug Abuse Patient Records regulations: The Federal rules restrict any use of the information to criminally investigate or prosecute any alcohol or drug abuse patient.[facility] the event this information is protected by the Federal Confidentiality of Alcohol and Drug Abuse Patient Records regulations: The Federal rules restrict any use of the information to criminally investigate or prosecute any alcohol or drug abuse patient.[facility] Reason for Visit (unrecogniz ed section and content) Reason Comments Ear Pain Right ear, right bibi ed throat pain, x 3 days Reason Comments Ear Problem Specialty Diagnoses / Procedures Referred By Contac t Referred To Contact Ent - Otolaryngology Diagnoses Cellulitis of left external ear Procedures CONSULT TO ENT OFFICE/OUTPATIENT [facility] 60 MINUTES Tiago Rodriguez MD [address] [place] [address] Referral ID Status Reason Start Date Expiration Date V isits Requested Visits Authorized [id number] Closed PCP Requested Referral 07/13/2023 07/12/2024 1 1 Reason Comments Follow Up Reason Comments Ear Pain Right ear pain since jul 13 Care Teams (unrecognized sec tion and content) Moisture Meter Operator Relationship Specialty Start Date End Date Kat Hurtado, TEAM ASSISTANT.STEVE PCP - General Family Medicine 08/02/15 Sha Urrutia MD [address] [id number] Primary Staff Physician Cardiology 08/19/18 Team Status: Inactive Member Role Status Dates Kat Hurtado DIRECTOR OF COMPLIANCE, DIRECTOR OF COMPLIANCE-C Attending Provider Active Moisture Meter Operator Relationship Specialty Start Date End Date Kat Hurtado, TEAM ASSISTANT.STOCK PITCHER [address] [place] [address] PCP - General Family Medicine 08/02/15 Sha Urrutia MD [address] [place] [address] Primary Staff Physician Cardiology 08/19/18 Moisture Meter Operator Relationship Specialty Start Date End Date Kat Hurtado, TEAM ASSISTANT.STOCK PITCHER [address] [place] [address] PCP - General Family Medicine 08/02/15 Sha Urrutia MD [address] [place] [address] Primary Staff Physician Cardiology 08/19/18 Moisture Meter Operator Relationship Specialty Start Date End Date Kat Hurtado, TEAM ASSISTANT.STOCK PITCHER [address] [place] [address] PCP - General Family Medicine 08/02/15 Sha Urrutia MD [address] [place], [place] [id number] Primary Staff Physician Cardiology 08/19/18 Goals (unrecognized section and content) Goals may be documented in a n alternate section FOR RECORDS PERTAINING TO PATIENTS WHO ARE OR HAVE BEEN ENROLLED IN A CHEMICAL DEPENDENCY/SUBSTANCEABUSE PROGRAM, SOME INFORMATION MAY BE OMITTED. This clinical summary was aggregated from multiple sources. Caution should be exercised in using it in the provision of clinical care. This summary normalizes information from multiple sources, and as a consequence, information in this document may materially change the coding, format and clinical context of patient data. In addition, data may be omitted in some cases. CLINICAL DECISIONS SHOULD BE BASED ON THE PRIMARY CLINICAL RECORDS. [employer] [facility] provides no warranty or guarantee of the accuracy or completeness of information in this document.
--- OUTSIDE RECORDS SUMMARY | 2024-12-17 01:05 | XMS RPT_ITS | CCD ---
Author Organization [facility] Care Team Providers Care Ostomy Nurse Name Role Phone Lamont KICK PRESS SETTER.Kat WILSON Primary Care Provide r Sha Urrutia MD Unavailable [phone] KAT HURTADO Primary Care Unavailable KAT HURTADO Primary Care Unavailable TIAGO BE Attending Unavailable TIAGO BE Attending Unavailable TIAGO RODRIGUEZ Referring Unavailabl e KAT HURTADO Primary Care Unavailable KAT HURTADO Primary Care Unavailable Allergies Allergy Classification Reported Allergen(s) Allergy Type Date of Onset Reaction(s) Facility (5 sources) Angiotensin-conv erting enzyme inhibitor agent; Translations: [ARNOLD INHIBITORS] Drug Allergy 2 Cough [facility] (5 sources) dilTIAZem; Translations: [DILTIAZEM HCL] Drug Allergy 0 [facility] (5 sources) Sulfites; Translations: [SULFITES] Food Allergy 1 [facility] Work Phone: (5 sources) Sulfonamides (Antibiotic); Translations: [SULFA (SULFONAMIDE ANTIBIOTICS)] Drug Allergy 0 [facility] (1 source) dilTIAZem Drug Allergy 8 rash [facility] (1 source) Sulfonamides (Antibiotic) Allergy to substance 8 muscle weakness and hives [facility] Medications Current Medications Medication Drug Class(es) Dates [...] on above: Take 1 capsule by mo [facility] two times a day for 10 [...] TWICE DAILY. Take 1 capsule by mo [facility] twice daily Take 1 capsule by mo [facility] twice daily. Problems Active Problems Problem [...] Test Name Value Interpretation Reference Range Facility [facility] 08-02-2023 CNOV Office Visit (WALKBR ) -------- FLO,JERILYN ([id number]) 1955 [facility] Date Time Provider Department 08/02/23 7:05 PM [...] history is provided by the patient. No mallet cutter was used. Ear Problem There is pain [...] of right ear and was seen in [facility] and by ENT. Pt just finished [...] with stent placement HYSTERECTOMY HX HYSTEROSCOPY with [facility] MENISCAL REPAIR SYGillian,CD,[id number] 11/2009, 2010 right ORTHOPEDICS SURGERY HX VAGINAL [...] taking: Repo (more content not included)... Normal [facility] CNOVon 07-23-2023 CNOV Office Visit (OTOLST ) -------- JERILYN ROSSI ([id number]) 1955 F [facility] Date Time Provider Department 07/23/23 [...] right [M25.561] (more content not included)... Normal [facility] CNOVon 07-15-2023 CNOV Office Visit (OTOLST ) -------- JERILYN ROSSI ([id number]) 1955 F [facility] Date Time Provider Department 07/15/23 [...] with stent placement HYSTERECTOMY HX HYSTEROSCOPY with [facility] MENISCAL REPAIR SYS,CD,[id number] 11/2009, 2010 right ORTHOPEDICS SURGERY HX VAGINAL [...] 3 - Low Referring Provider: TIAGO RODRIGUEZ [[id number]] Allergies As of Date: 07/15/2023 Noted Allergy [...] [H60.12] Order(s):CONSULT TO ENT [9008] Order #: [id number]: 1 ciprofloxacin HCl (CILOXAN) 0.3 % ophthalmic [...] to appoi (more content not included)... Normal [facility] CNOVon 07-13-2023 CNOV Office Visit (WALKBR ) -------- JERILYN ROSSI ([id number]) 1955 F [facility] Date Time Provider Department 07/13/23 [...] AM Signed This note was created using [employer]. Subjective Jerilyn Rossi is a 68 year [...] 0 CONSULT TO ENT [9008] Order #: [id number]: 1 FUTURE Prescriptions as of 07/13/2023 - [...] ISOPTIN SR (more content not included)... Normal [facility] Absolute lymphocyte countOrd ered By: Kat Hurtado on 02-07-2023 Lymphocytes Auto (Unsp spec) [#/Vol] 2.47 10*3/uL 0.83-4.51 [facility] Basophil percentageOrdered B y: Kat Hurtado on 02-07-2023 Basophils/100 WBC (Bld) 0.4 % 0-1 [facility] Bilirubin [Mass/Vol] 0.40 mg/dL 0.20-1.00 [facility] Comment on above: For patients on eltr ombopag therapy, use of Dimension Braxton TBIL is not recommended. Chloride [Moles/Vol] 105 mmol/L 98-107 [facility] Cholesterol [Mass/Vol] 235 mg/dL <200 [facility] Comment on above: <200 mg/dL Desirable 200-240 mg/dL Borderline >240 mg/dL High Risk Eosinophils/100 WBC (Bld) 2.3 % 0-5 [facility] Glucose [Mass/Vol] 294 mg/dL 74-106 [facility] Comment on above: Glucose result great er than or equal to 200 mg/dLsuggests DIABETES MELLITUS per A.D.A. criteria. Neutrophils (Bld) [#/Vol] 3.7 10*3/uL 2.0-7.7 [facility] Neutrophils/100 WBC (Bld) 54.3 % 47-70 [facility] Potassium [Moles/Vol] 4.4 mmol/L 3.5-5.1 [facility] Protein [Mass/Vol] 7.4 g/dL 6.4-8.2 [facility] Sodium [Moles/Vol] 136 mmol/L 136-145 [facility] Triglyceride [Mass/Vol] 327 mg/dL <199 [facility] Comment on above: The drugs N-Acetylcy steine and Metamizole may falsely depress this assay.Serum Triglycerides Reference Interval Normal <150 mg/dL Borderline high 150 - 199 mg/dL High 200 - 499 mg/dL Very High > or = 500 mg/dL WBC (Bld) [#/Vol] 6.9 10*3/uL 4.4-11.0 [facility] Blood erythrocytes count (nu mber/volume)Ordered By: Kat Hurtado on 02-07-2023 RBC (Bld) [#/Vol] 4.80 10*6/uL 4.2-5.4 [facility] Blood hemoglobin measurement (mass/volume)Ordered By: Kat Hurtado on 02-07-2023 Hemoglobin (Bld) [Mass/Vol] 13.6 g/dL 12.0-15.0 [facility] Blood lymphocytes/100 leukoc ytesOrdered By: Kat Hurtado on 02-07-2023 Lymphocytes/100 WBC (Bld) 35.9 % 19-41 [facility] Blood monocytes/100 leukocyt esOrdered By: Kat Hurtado on 02-07-2023 Monocytes/100 WBC (Bld) 6.8 % 0-10 [facility] Blood platelet mean volumeOr dered By: Kat Hurtado on 02-07-2023 Platelet mean volume (Bld) [Entitic vol] 12.4 fL 6.2-12.0 [facility] Determination of erythrocyte mean corpuscular volume (MCV)Ordered By: Kat Hurtado on 02-07-2023 MCV (RBC) [Entitic vol] 86.7 fL 81-99 [facility] Hematocrit Auto (Bld) [Volum e fraction]Ordered By: Kat Hurtado on 02-07-2023 Hematocrit (Bld) [Volume fraction] 41.6 % 37-47 [facility] Laboratory - Chemistry and C hemistry - challengeOrdered By: Kat Hurtado on 02-07-2023 ALP [Catalytic activity/Vol] 114 U/L 45-117 [facility] ALT [Catalytic activity/Vol] 38 U/L 13-56 [facility] CO2 [Moles/Vol] 25.0 mmol/L 21.0-32.0 [facility] Globulin (S) [Mass/Vol] 3.5 g/dL 2.2-4.2 [facility] Urea nitrogen/Creatinine [Mass ratio] 25.9 mg/mg 10-20 [facility] Laboratory - Hematology and Cell countsOrdered By: Kat Hurtado on 02-07-2023 Erythrocyte distribution width (RBC) [Entitic vol] 39.1 fL 35.1-43.9 [facility] Erythrocyte distribution width (RBC) [Ratio] 12.4 % 11.6-14.6 [facility] Immature granulocytes/100 WBC (Bld) 0.300 % 0.0-0.9 [facility] Comment on above: IG% - Immature Granu locytes (promyelocytes, myelocytes and metamyelocytes) > 1% indicates that a LEFT SHIFT is Present. MCH (RBC) [Entitic mass] 28.3 pg 27.0-32.0 [facility] Nucleated RBC/100 WBC (Bld) [Ratio] 0 % 0-5 [facility] MCHC Auto (RBC) [Mass/Vol]Or dered By: Kat Hurtado on 02-07-2023 MCHC (RBC) [Mass/Vol] 32.7 g/dL 32-36 [facility] No Panel InformationOrdered By: Kat Hurtado on 02-07-2023 Estimated GFR (MDRD) Amer 109 mL/min >60 [facility] Comment on above: GFR Calc Estimated GFR (MDRD) Non-Af Amer 90 mL/min >60 [facility] Comment on above: Non- GFR Calc Platelets bldOrdered By: Mateo Hurtado on 02-07-2023 Platelets (Bld) [#/Vol] 247 10*3/uL 150-450 [facility] Serum or plasma albumin shalonda urement (mass/volume)Ordered By: Kat Hurtado on 02-07-2023 Albumin [Mass/Vol] 3.9 g/dL 3.2-5.0 [facility] Serum or plasma albumin/glob ulin mass ratioOrdered By: Kat Hurtado on 02-07-2023 Albumin/Globulin [Mass ratio] 1.1 {ratio} 0.9-2.4 [facility] Serum or plasma calcium shalonda urement (mass/volume)Ordered By: Kat Hurtado on 02-07-2023 Calcium [Mass/Vol] 9.7 mg/dL 8.5-10.1 [facility] Serum or plasma cholesterol in HDL measurement (mass/volume)Ordered By: Kat Hurtado on 02-07-2023 Cholesterol in HDL [Mass/Vol] 38 mg/dL >40 [facility] Comment on above: The drugs N-Acetylcy steine and Metamizole may falsely depress this assay. Reference Range HDL <40 mg/dL Low HDL Cholesterol HDL >or= 60 mg/dL High HDL Cholesterol Serum or plasma cholesterol in VLDL measurement (mass/volume)Ordered By: Kat Hurtado on 02-07-2023 Cholesterol in VLDL [Mass/Vol] 65 mg/dL 5-40 [facility] Serum or plasma creatinine m easurement (mass/volume)Ordered By: Kat Hurtado on 02-07-2023 Creatinine [Mass/Vol] 0.70 mg/dL 0.55-1.02 [facility] Comment on above: The validity of the calculated GFR & GFRAA in patients over 70 years has not been determined. Clinical correlation is essential. Serum or plasma low density lipoprotein (LDL) cholesterol measurement (mass/volume)Ordered By: Kat Hurtado on 02-07-2023 Cholesterol in LDL [Mass/Vol] 132 mg/dL 0-130 [facility] Serum or plasma urea nitroge n measurement (mass/volume)Ordered By: Kat Hurtado on 02-07-2023 Urea nitrogen [Mass/Vol] 18 mg/dL 7-18 [facility] Thin prep Papanicolaou smear with manual screeningOrdered By: Kat Hurtado on 02-07-2023 Thin prep Papanicolaou smear with manual screening 17 U/L 15-37 [facility] Thin prep Papanicolaou smear with manual screening 6 5-15 [facility] STREP A MOLECULAR (POC)on Procedural Control Valid [facility] Strep A (POCT) Negative Negative [facility] HEALTHon 09-25-2021 ALLIED HEALTH HNO ID: [id number] Author: HOWIE Nj Service: Radiology Author Type: [...] HOWIE Nj September 25, 2021 11:01 AM [facility] CBC W Auto Differential pane l (Bld)on 09-25-2021 Basophils (Bld) [#/Vol] 0.03 10*3/uL Normal <0.11 [facility] Comment on above: Order Comment: Speci men Type: BLOOD SPECIMEN Ordering Facility: [facility] Address: [address] [place] [address] Performed By: #### 5 7021-8 #### [facility] CLIA [id number] [address] [place] Basophils/100 WBC (Bld) 0.4 % Normal [facility] Comment on above: Order Comment: Speci men Type: BLOOD SPECIMEN Ordering Facility: [facility] Address: [address] [place] [address] Performed By: #### 5 7021-8 #### [facility] CLIA [id number] [address] Differential cell count method Nom (Bld) Auto Normal [facility] Comment on above: Order Comment: Speci men Type: BLOOD SPECIMEN Ordering Facility: [facility] Address: [address] [place] [address] Performed By: #### 5 7021-8 #### [facility] CLIA [id number] [address] [place] [address] [place] Eosinophils (Bld) [#/Vol] 0.10 10*3/uL Normal <0.46 [facility] Comment on above: Order Comment: Speci men Type: BLOOD SPECIMEN Ordering Facility: [facility] Address: [address] [place] [address] Performed By: #### 5 7021-8 #### [facility] CLIA [id number] [address] [place] Eosinophils/100 WBC (Bld) 1.4 % Normal [facility] Comment on above: Order Comment: Speci men Type: BLOOD SPECIMEN Ordering Facility: [facility] Address: [address] [place] [address] Performed By: #### 5 7021-8 #### [facility] CLIA [id number] [address] [place] Erythrocyte distribution width (RBC) [Ratio] 12.0 % Normal 11.5-15.0 [facility] Comment on above: Order Comment: Speci men Type: BLOOD SPECIMEN Ordering Facility: [facility] Address: [address] [place] [address] Performed By: #### 5 7021-8 #### [facility] CLIA [id number] [address] Hematocrit (Bld) [Volume fraction] 41.4 % Normal 36.0-46.0 [facility] Comment on above: Order Comment: Speci men Type: BLOOD SPECIMEN Ordering Facility: [facility] Address: [address] [place] [address] Performed By: #### 5 7021-8 #### [facility] CLIA [id number] [address] Hemoglobin (Bld) [Mass/Vol] 14.2 g/dL Normal 11.5-15.5 [facility] Comment on above: Order Comment: Speci men Type: BLOOD SPECIMEN Ordering Facility: [facility] Address: [address] [place] [address] Performed By: #### 5 7021-8 #### [facility] CLIA [id number] [address] IMMATURE GRAN % 0.1 % Normal [facility] Comment on above: Order Comment: Speci men Type: BLOOD SPECIMEN Ordering Facility: [facility] Address: [address] [place] [address] Performed By: #### 5 7021-8 #### [facility] CLIA [id number] [address] IMMATURE GRAN ABS <0.03 Normal <0.10 [facility] Comment on above: Order Comment: Speci men Type: BLOOD SPECIMEN Ordering Facility: [facility] Address: [address] [place] [address] Performed By: #### 5 7021-8 #### [facility] CLIA [id number] [address] [place] Lymphocytes (Bld) [#/Vol] 2.17 10*3/uL Normal 1.00-4.00 [facility] Comment on above: Order Comment: Speci men Type: BLOOD SPECIMEN Ordering Facility: [facility] Address: [address] [place] [address] Performed By: #### 5 7021-8 #### [facility] CLIA [id number] [address] Lymphocytes/100 WBC (Bld) 30.6 % Normal [facility] Comment on above: Order Comment: Speci men Type: BLOOD SPECIMEN Ordering Facility: [facility] Address: [address] [place] [address] Performed By: #### 5 7021-8 #### [facility] CLIA [id number] [address] STATES [facility] MCH (RBC) [Entitic mass] 29.2 pg Normal 26.0-34.0 [facility] Comment on above: Order Comment: Speci men Type: BLOOD SPECIMEN Ordering Facility: [facility] Address: [address] [place] [address] Performed By: #### 5 7021-8 #### [facility] CLIA [id number] [address] STATES [facility] MCHC (RBC) [Mass/Vol] 34.3 g/dL Normal 30.5-36.0 [facility] Comment on above: Order Comment: Speci men Type: BLOOD SPECIMEN Ordering Facility: [facility] Address: [address] [place] [address] Performed By: #### 5 7021-8 #### [facility] CLIA [id number] [address] MCV (RBC) [Entitic vol] 85.0 fL Normal 80.0-100.0 [facility] Comment on above: Order Comment: Speci men Type: BLOOD SPECIMEN Ordering Facility: [facility] Address: [address] [place] [address] Performed By: #### 5 7021-8 #### [facility] CLIA [id number] [address] Monocytes (Bld) [#/Vol] 0.65 10*3/uL Normal <0.87 [facility] Comment on above: Order Comment: Speci men Type: BLOOD SPECIMEN Ordering Facility: [facility] Address: [address] [place] [address] Performed By: #### 5 7021-8 #### [facility] CLIA [id number] [address] [place] Monocytes/100 WBC (Bld) 9.2 % Normal [facility] Comment on above: Order Comment: Speci men Type: BLOOD SPECIMEN Ordering Facility: [facility] Address: [address] [place] [address] Performed By: #### 5 7021-8 #### [facility] CLIA [id number] [address] Neutrophils (Bld) [#/Vol] 4.13 10*3/uL Normal 1.45-7.50 [facility] Comment on above: Order Comment: Speci men Type: BLOOD SPECIMEN Ordering Facility: [facility] Address: [address] [place] [address] Performed By: #### 5 7021-8 #### [facility] CLIA [id number] [address] Neutrophils/100 WBC (Bld) 58.3 % Normal [facility] Comment on above: Order Comment: Speci men Type: BLOOD SPECIMEN Ordering Facility: [facility] Address: [address] [place] [address] Performed By: #### 5 7021-8 #### [facility] CLIA [id number] [address] [place] Nucleated RBC (Bld) [#/Vol] 10*3/uL Normal <0.01 [facility] Comment on above: Order Comment: Speci men Type: BLOOD SPECIMEN Ordering Facility: [facility] Address: [address] [place] [address] Performed By: #### 5 7021-8 #### [facility] CLIA [id number] [address] [place] Nucleated RBC/100 WBC (Bld) [Ratio] 0.0 /100 WBC Normal [facility] Comment on above: Order Comment: Speci men Type: BLOOD SPECIMEN Ordering Facility: [facility] Address: [address] [place] [address] Performed By: #### 5 7021-8 #### [facility] CLIA [id number] [address] [place] [address] [place] Platelet mean volume (Bld) [Entitic vol] 11.7 fL Normal 9.0-12.7 [facility] Comment on above: Order Comment: Speci men Type: BLOOD SPECIMEN Ordering Facility: [facility] Address: [address] [place] [address] Performed By: #### 5 7021-8 #### [facility] CLIA [id number] [address] [place] [address] [place] Platelets (Bld) [#/Vol] 256 10*3/uL Normal 150-400 [facility] Comment on above: Order Comment: Speci men Type: BLOOD SPECIMEN Ordering Facility: [facility] Address: [address] [place] [address] Performed By: #### 5 7021-8 #### [facility] CLIA [id number] [address] [place] [address] [place] RBC (Bld) [#/Vol] 4.87 10*6/uL Normal 3.90-5.20 [facility] Comment on above: Order Comment: Speci men Type: BLOOD SPECIMEN Ordering Facility: [facility] Address: [address] [place], [place] [address] Performed By: #### 5 7021-8 #### [facility] CLIA [id number] [address] [place] [address] [place] WBC (Bld) [#/Vol] 7.09 10*3/uL Normal 3.70-11.00 [facility] Comment on above: Order Comment: Speci men Type: BLOOD SPECIMEN Ordering Facility: [facility] Address: [address] [place] [address] Performed By: #### 5 7021-8 #### [facility] CLIA [id number] [address] [place] [address] [place] CT FLANK WO IVCONon 09-26-19 CT FLANK WO IVCON * * *Final Report* * * DATE OF EXAM: Sep 25 2021 11:04AM [facility] 0529 - CT FLANK WO IVCON / [...] with no acute abnormality. Lower thorax: Unremarkable. Programming Specialist (topogram) images: No additional findings. IMPRESSION: NO URINARY TRACT CALCULUS. NO HYDRONEPHROSIS. Drywall Stripper: YESSICA Transcribe Date/Time: Sep 25 2021 11:15A Dictated by : MELIA ELDRIDGE MD This examination was interpreted and the report reviewed and electronically signed by: MELIA ELDRIDGE MD on Apr 25 2022 11:31AM EST [id number] Normal [facility] Comprehensive metabolic 2000 panelon 09-25-2021 Albumin [Mass/Vol] 4.6 g/dL Normal 3.9-4.9 [facility] Comment on above: Order Comment: Speci men Type: BLOOD SPECIMEN Ordering Facility: [facility] Address: [address] [place] [address] Performed By: #### 3 040-3, 63035-9, 09645-0 #### [facility] CLIA [id number] [address] [place] [address] [place] ALP [Catalytic activity/Vol] 119 U/L Normal 34-123 [facility] Comment on above: Order Comment: Speci men Type: BLOOD SPECIMEN Ordering Facility: [facility] Address: [address] [place] [address] Performed By: #### 3 040-3, 28234-8, 32884-9 #### [facility] CLIA [id number] [address] STATES OF [facility] ALT [Catalytic activity/Vol] 27 U/L Normal 7-38 [facility] Comment on above: Order Comment: Speci men Type: BLOOD SPECIMEN Ordering Facility: [facility] Address: [address] [place] [address] Performed By: #### 3 040-3, 60903-5, 64575-6 #### [facility] CLIA [id number] [address] Anion gap [Moles/Vol] 14 mmol/L Normal 9-18 [facility] Comment on above: Order Comment: Speci men Type: BLOOD SPECIMEN Ordering Facility: [facility] Address: [address] [place] [address] Performed By: #### 3 040-3, 70769-9, 73760-6 #### [facility] CLIA [id number] [address] [place] [address] [place] AST [Catalytic activity/Vol] 20 U/L Normal 13-35 [facility] Comment on above: Order Comment: Speci men Type: BLOOD SPECIMEN Ordering Facility: [facility] Address: [address] [place] [place] [address] Performed By: #### 3 040-3, , #### [facility] CLIA [id number] [address] [place] [address] [place] Bilirubin [Mass/Vol] 0.6 mg/dL Normal 0.2-1.3 [facility] Comment on above: Order Comment: Speci men Type: BLOOD SPECIMEN Ordering Facility: [facility] Address: [address] [place] [address] Performed By: #### 3 040-3, , #### [facility] CLIA [id number] [address] [place] [address] [place] Calcium [Mass/Vol] 10.1 mg/dL Normal 8.5-10.2 [facility] Comment on above: Order Comment: Speci men Type: BLOOD SPECIMEN Ordering Facility: [facility] Address: [address] [place] [address] Performed By: #### 3 040-3, , #### [facility] CLIA [id number] [address] [place] [address] [place] Chloride [Moles/Vol] 98 mmol/L Normal 97-105 [facility] Comment on above: Order Comment: Speci men Type: BLOOD SPECIMEN Ordering Facility: [facility] Address: [address] [place] [address] Performed By: #### 3 040-3, , #### [facility] CLIA [id number] [address] [place] [address] [place] CO2 [Moles/Vol] 23 mmol/L Normal 22-30 [facility] Comment on above: Order Comment: Speci men Type: BLOOD SPECIMEN Ordering Facility: [facility] Address: [address] [place] [address] [place] [address] Performed By: #### 3 040-3, , #### [facility] CLIA [id number] [address] [place] [address] [place] Creatinine [Mass/Vol] 0.47 mg/dL Low 0.58-0.96 [facility] Comment on above: Order Comment: Monik jean Type: BLOOD SPECIMEN Ordering Facility: [facility] Address: [address] [place] [place] [id number] Performed By: #### 3 040-3, 67105-9, 65240-2 #### [facility] CLIA [id number] [address] ESTIMATED GLOMERULAR FILTRATION RATE 106 mL/min/1.73m??? Normal >=60 [facility] Comment on above: Order Comment: Monik jean Type: BLOOD SPECIMEN Ordering Facility: [facility]: [address] [facility] [place] [address] Result Comment: Ernestina mated Glomerular Filtration Rate [...] actual GFR. Performed By: #### 3 040-3, 53117-5, 88904-9 #### [facility] CLIA [id number] [address] [place] Glucose [Mass/Vol] 295 mg/dL High 74-99 [facility] Comment on above: Order Comment: Monik jean Type: BLOOD SPECIMEN [facility] [facility] Address: [address] [address] Result Comment: The [place] [employer] Association (ADA) provides guidance for cutoff [...] Standards of Medical Care in Diabetes 2016, [place] [employer]. Diabetes Care. 2016.39(Suppl 1). Performed By: #### 3 040-3, 13689-3, 54365-0 #### [facility] CLIA [id number] [address] [place] [address] [place] [facility] Potassium [Moles/Vol] 4.4 mmol/L Normal 3.7-5.1 [facility] Comment on above: Order Comment: Speci men Type: BLOOD SPECIMEN Ordering Facility: [facility] Address: [address] [place] [address] Performed By: #### 3 040-3, 16944-8, 40084-6 #### [facility] CLIA [id number] [address] [place] [address] [place] Protein [Mass/Vol] 7.1 g/dL Normal 6.3-8.0 [facility] Comment on above: Order Comment: Speci men Type: BLOOD SPECIMEN Ordering Facility: [facility] Address: [address] [place] [address] Performed By: #### 3 040-3, 09585-4, 43410-5 #### [facility] CLIA [id number] [address] [place] OF [place] Sodium [Moles/Vol] 135 mmol/L Low 136-144 [facility] Comment on above: Order Comment: Speci men Type: BLOOD SPECIMEN Ordering Facility: [facility] Address: [address] [place] [address] Performed By: #### 3 040-3, , 39756-7 #### [facility] CLIA [id number] [address] [place] [address] [place] Urea nitrogen [Mass/Vol] 13 mg/dL Normal 7-21 [facility] Comment on above: Order Comment: Speci men Type: BLOOD SPECIMEN Ordering Facility: [facility] Address: [address] [place] [address] Performed By: #### 3 040-3, 98727-3, 41701-7 #### [facility] CLIA [id number] [address] [place] [address] [place] ED NOTEon 09-25-2021 ED NOTE HNO ID: [id number] Author: Fátima Gillis RN Service: Nursing Author [...] DATE: September 28, 2021 TIME: 5:22 PM [facility] ED NOTE HNO ID: [id number] Author: Jess Hays RN Service: ? Author Type: Registered Nurse Type: ED Notes Filed: 09/25/2021 12:09 PM Note Text: Patient in stable condition upon discharge. resp even and unlabored no distress noted. Discharge and follow up reviewed plan of care is agreed upon. Patient thankful for care upon discharge. [facility] ED NOTE HNO ID: [id number] Author: Mary Pinto RN Service: ? Author Type: Registered Nurse Type: ED Notes Filed: 09/25/2021 10:17 AM Note Text: Pt to ED with diffuse abd pain. Denies N/V/D. No problems with urination. Denies flank pain but reports it feels similar to when she had a kidney stone in the past. [facility] ED PROV NOTEon 09-25-2021 ED PROV NOTE HNO ID: [id number] Author: Racquel Kamara PA-C Service: Emergency Medicine Author Type: Physician Handle Attacher Type: ED Provider Notes Filed: 09/25/2021 3:27 [...] - HYSTEROSCOPY with [facility] - MENISCAL REPAIR SYS,CD,[id number] 11/2009, 2010 right - ORTHOPEDICS SURGERY HX [...] IMPRESSION: NO URINARY TRACT CALCULUS. NO HYDRONEPHROSIS. Drywall Stripper: YESSICA Transcribe Date/Time: Sep 25 2021 11:15A [...] were re (more content not included)... Normal [facility] Lipase SerPl-cCncon 09-26-19 Lipase [Catalytic activity/Vol] 37 U/L Normal 16-61 [facility] Comment on above: Order Comment: Speci men Type: BLOOD SPECIMEN Ordering Facility: [facility] Address: [address] [address] Performed By: #### 3 040-3, 51957-2, 71687-2 #### [facility] CLIA [id number] [address] OF [place] Magnesium SerPl-mCncon 09-25 Magnesium [Mass/Vol] 1.7 mg/dL Normal 1.7-2.3 [facility] Comment on above: Order Comment: Speci men Type: BLOOD SPECIMEN Ordering Facility: [facility] Address: [address] [place] [address] Performed By: #### 3 040-3, 78584-4, 45747-7 #### [facility] CLIA [id number] [address] URINALYSIS, REFLEX MICROSCOP ICon 09-25-2021 Bacteria LM.HPF (Urine sed) [#/Area] Few Abnormal None Seen [facility] Comment on above: Order Comment: Speci men Type: URINE SPECIMEN Ordering Facility: [facility] Address: [address] [place] [address] Performed By: #### L [id number] #### [facility] CLIA [id number] [address] Bilirubin Ql (U) Negative Normal Negative [facility] Comment on above: Order Comment: Speci men Type: URINE SPECIMEN Ordering Facility: [facility] Address: [address] [place] [address] Performed By: #### L [id number] #### [facility] CLIA [id number] [address] Clarity (Unsp spec) Clear Normal Clear [facility] Comment on above: Order Comment: Speci men Type: URINE SPECIMEN Ordering Facility: [facility] Address: [address] [place] [address] Performed By: #### L [id number] #### [facility] CLIA [id number] [address] Color (U) Yellow Normal Yellow [facility] Comment on above: Order Comment: Speci men Type: URINE SPECIMEN Ordering Facility: [facility] Address: [address] [address] Performed By: #### L [id number] #### [facility] CLIA [id number] [address] Epithelial cells LM.HPF (Urine sed) [#/Area] Few Normal [facility] Comment on above: Order Comment: Speci men Type: URINE SPECIMEN Ordering Facility: [facility] Address: [address] [place] [address] Result Comment: Few Performed By: #### L [id number] #### [facility] CLIA [id number] [address] OF [place] Glucose Test strip (U) [Mass/Vol] Negative Normal Negative [facility] Comment on above: Order Comment: Speci men Type: URINE SPECIMEN Ordering Facility: [facility] Address: [address] [place] [address] Performed By: #### L [id number] #### [facility] CLIA [id number] [address] OF [place] Hemoglobin Ql (U) Negative Normal Negative [facility] Comment on above: Order Comment: Speci men Type: URINE SPECIMEN Ordering Facility: [facility] Address: [address] [place] [address] Performed By: #### L [id number] #### [facility] CLIA [id number] [address] Ketones Ql (U) Negative Normal Negative [facility] Comment on above: Order Comment: Speci men Type: URINE SPECIMEN Ordering Facility: [facility] Address: [address] [place] [address] Performed By: #### L [id number] #### [facility] CLIA [id number] [address] Leukocyte esterase Test strip Ql (U) Trace Abnormal Negative [facility] Comment on above: Order Comment: Speci men Type: URINE SPECIMEN Ordering Facility: [facility] Address: [address] [place] [address] Performed By: #### L [id number] #### [facility] CLIA [id number] [address] OF [place] Nitrite Ql (U) Negative Normal Negative [facility] Comment on above: Order Comment: Speci men Type: URINE SPECIMEN Ordering Facility: [facility] Address: [address] [place] [address] Performed By: #### L [id number] #### [facility] CLIA [id number] [address] OF [place] pH (U) 6.0 [pH] Normal 5.0-8.0 [facility] Comment on above: Order Comment: Speci men Type: URINE SPECIMEN Ordering Facility: [facility] Address: [address] [place] [address] Performed By: #### L [id number] #### [facility] CLIA [id number] [address] [place] Protein (U) [Mass/Vol] Negative Normal Negative [facility] Comment on above: Order Comment: Speci men Type: URINE SPECIMEN Ordering Facility: [facility] Address: [address] [place] [address] Performed By: #### L [id number] #### [facility] CLIA [id number] [address] [place] RBC LM.HPF (Urine sed) [#/Area] 0-3 /HPF Normal 0-3 /HPF [facility] Comment on above: Order Comment: Speci men Type: URINE SPECIMEN Ordering Facility: [facility] Address: [address] [place] [address] Performed By: #### L [id number] #### [facility] CLIA [id number] [address] Specific gravity (U) [Rel density] <=1.005 Low 1.005-1.030 [facility] Comment on above: Order Comment: Speci men Type: URINE SPECIMEN Ordering Facility: [facility] Address: [address] [place] [address] Performed By: #### L [id number] #### [facility] CLIA [id number] [address] Urobilinogen Ql (U) 0.2 EU/dL Normal 0.2-1.0 EU/dL [facility] Comment on above: Order Comment: Speci men Type: URINE SPECIMEN Ordering Facility: [facility] Address: [address] [place] [address] Performed By: #### L [id number] #### [facility] CLIA [id number] [address] WBC LM.HPF (Urine sed) [#/Area] 0-5 /HPF Normal 0-5 /HPF [facility] Comment on above: Order Comment: Speci men Type: URINE SPECIMEN Ordering Facility: [facility] Address: [address] [place] [address] Performed By: #### L [id number] #### [facility] CLIA [id number] [address] Vital Signs Date Time Vital Sign Value Performing Clinician Judithi chrisy 08-02-2023 19:11-0500 Body temperature 98.4 [degF] Kenyon Parishere KICK PRESS SETTER.AUTO BODY PAINTER Work Phone: [facility] 08-02-2023 19:11-0500 Diastolic blood pressure 86 mm[Hg] Kenyon Larouere KICK PRESS SETTER.AUTO BODY PAINTER Work Phone: [facility] 08-02-2023 19:11-0500 Heart rate 92 /min Kenyon Chrisouere KICK PRESS SETTER.AUTO BODY PAINTER Work Phone: [facility] 08-02-2023 19:11-0500 Respiratory rate 16 /min Kenyon Parishere KICK PRESS SETTER.AUTO BODY PAINTER Work Phone: [facility] 08-02-2023 19:11-0500 SaO2% (BldA) [Mass fraction] 98 % Kenyon Chrisouere KICK PRESS SETTER.AUTO BODY PAINTER Work Phone: [facility] 08-02-2023 19:11-0500 Systolic blood pressure 152 mm[Hg] Kenyon Chrisouere KICK PRESS SETTER.AUTO BODY PAINTER Work Phone: [facility] 02-07-2023 17:36-0400 Body height 165.1 cm [facility] 02-07-2023 17:36-0400 Body mass index (BMI) [Ratio] 30.4 kg/m2 [facility] 02-07-2023 17:36-0400 Body temperature 97.9 [degF] [facility] 02-07-2023 17:36-0400 Body weight 83 kg [facility] 02-07-2023 17:36-0400 Diastolic blood pressure 70 mm[Hg] [facility] 02-07-2023 17:36-0400 Heart rate 84 /min [facility] 02-07-2023 17:36-0400 Respiratory rate 18 /min [facility] 02-07-2023 17:36-0400 SaO2% (BldA) [Mass fraction] 97 % [facility] 02-07-2023 17:36-0400 Systolic blood pressure 140 mm[Hg] [facility] 04-24-2022 08:44-0500 Body temperature 97.9 [degF] Anaid Korduba PA-C Work Phone: [facility] 04-24-2022 08:44-0500 Body weight 85.84 kg Anaid Korduba PA-C Work Phone: [facility] 04-24-2022 08:44-0500 Diastolic blood pressure 83 mm[Hg] Anaid Korduba PA-C Work Phone: [facility] 04-24-2022 08:44-0500 Heart rate 84 /min Anaid Korduba PA-C Work Phone: [facility] 04-24-2022 08:44-0500 Respiratory rate 18 /min Anaid Korduba PA-C Work Phone: [facility] 04-24-2022 08:44-0500 SaO2% (BldA) [Mass fraction] 97 % Anaid Korduba PA-C Work Phone: [facility] 04-24-2022 08:44-0500 Systolic blood pressure 138 mm[Hg] Anaid Korduba PA-C Work Phone: [facility] Encounters Encounter Date Encounter Type Care Provider Facility Start: 08-02-2023 End: 08-02-2023 ambulatory KATSarah HURTADO Facility:[facility] Start: 08-02-2023 End: 08-02-2023 Patient encounter procedure Kenyon Camargo AUTO BODY PAINTER Work Phone: [facility] Comment on above: Eustachian tube dysf unction, right (Primary Dx) Start: 07-23-2023 End: 07-23-2023 ambulatory KAT HURTADO Facility:[facility] Start: 07-23-2023 End: 07-23-2023 Patient encounter procedure Tiago Be MD Work Phone: Otol[facility]ology Comment on above: Acute otitis externa of right ear, unspecified type (Primary Dx) Start: 07-15-2023 End: 07-15-2023 ambulatory TIAGO BE Facility:[facility] Start: 07-15-2023 End: 07-15-2023 Patient encounter procedure Tiago Be MD Work Phone: Otolaryngology Comment on above: Acute otitis externa of right ear, unspecified type (Primary Dx); Cellulitis of left external ear Start: 07-13-2023 End: 07-13-2023 ambulatory LOWELL Carson HURTADO Facility:[facility] Start: 02-07-2023 End: 02-07-2023 ambulatory [facility] Work Phone: Start: 02-07-2023 End: 02-07-2023 Patient encounter procedure [facility] Specimen Work Phone: Start: 04-24-2022 End: 04-24-2022 Patient encounter procedure Anaid Long PA-C Work Phone: [facility] Comment on above: Sore throat [...] 06-03-2023 Advance Directive Discussion Advance Directive Discussion [facility] Start: 06-03-2023 Depression Assessment Depression Ass essment [facility] Start: 02-01-2023 Influenza vaccination Influenza Vacc ine (#1) [facility] Start: 2022 Screening for osteoporosis Bone Density Screening [facility] Start: 02-01-2022 Influenza vaccination INFLUENZA (#1) [facility] Start: 06-03-2021 DEPRESSION ASSESSMENT DEPRESSION ASS ESSMENT [facility] Start: 06-01-2021 Mammography MAMMOGRAM [facility] Start: 06-01-2021 Screening for malign ant neoplasm of breast Mammogram Screening [facility] Start: 04-30-2021 Hepatitis B surface antibody level LDL CHOLESTEROL [facility] Start: 07-31-2020 Hemoglobin A1c measurement HbA1C [facility] Start: 07-31-2020 Hemoglobin A1c/Hemoglobin.total in Blood HBA1C [facility] Start: 08-10-2018 PAP TESTING PAP TESTING [facility] Start: 2017 RSV Vaccine (1 - 1-d ose 60+ series) RSV Vaccine (1 - 1-dose 60+ series) [facility] Start: 08-24-2015 Colonoscopy COLONOSCOPY [facility] Start: 08-24-2015 COLORECTAL CANCER SCREENING COLORECTAL CANCER SCREENING [facility] Start: 08-24-2015 Screening for malign ant neoplasm of colon [facility] Start: 12-29-2009 Hepatitis B screening URINE ALBUMIN:CREATININE RATIO [facility] Start: 2007 SHINGRIX VACCINE (1 of 2) SHINGRIX VACCINE (1 of 2) [facility] Start: 2002 COLOGUARD (FIT-DNA) COLOGUARD (FIT-D NA) [facility] Start: [address] [facility] Start: 2002 FECAL OCCULT BLOOD FECAL OCCULT BLOO D [facility] Start: 2002 Screening for malign ant neoplasm of colon [facility] Start: 2002 SIGMOIDOSCOPY SIGMOIDOSCOPY [facility] Start: 1987 HPV TESTING HPV TESTING [facility] Start: 1976 Urine microalbumin profile [facility] Start: 1975 ANNUAL PCP TEAM AIRLINE RADIO OPERATOR LEXI DISEASE VISIT ANNUAL PCP TEAM CHRONIC DISEASE VISIT [facility] Start: 1975 BP CONTROLLED (<130/80) BP CONTROLLE D (<130/80) [facility] Start: 1967 3 comp foot exam completed DIABETIC FOOT EXAM [facility] Start: 1967 Diabetic foot examination Diabetic Foot Exam [facility] Start: 1967 Glaucoma screening Dilated Retinal E xam [facility] Start: 1967 Hepatitis C antibody , confirmatory test DILATED RETINAL EXAM [facility] Start: 1963 PNEUMOCOCCAL (1 - PCV) PNEUMOCOCCAL (1 - PCV) [facility] Start: 1963 Pneumococcal Vaccine : 65+ (1 of 2 - PCV) Pneumococcal Vaccine: 65+ (1 of 2 - PCV) [facility] Start: 1957 COVID-19 VACCINE (#1) COVID-19 VACCI NE (#1) [facility] SARS-CoV-2 (COVID-19 ) RNA [Presence] in Respiratory specimen by KULWANT with probe detection [facility] COVID19 Microbiology Routine Sore throat Ordered: 04/24/2022 [facility] Work Phone: Comment on above: Ordered: 04/24/2022 [facility] Immunizations Immunization Date Immunization Notes Care Provider Nahun montejo 03-04-2018 influenza virus vacc ine, unspecified formulation Anaid Korduba PA-C Work Phone: [facility] 03-12-2017 influenza virus vacc ine, unspecified formulation Anaid Korduba PA-C Work Phone: [facility] 02-28-2016 influenza virus vacc ine, unspecified formulation Anaid Korduba PA-C Work Phone: [facility] 03-01-2015 influenza virus vacc ine, unspecified formulation Anaid Korduba PA-C Work Phone: [facility] Payers Date Payer Category Payer Medicare [id number] 2022 Medicare MEDICARE MEDICAR E A AND B [id number] 2022-Present [phone] [place] [address] Medicare [id number] 2022 Unknown [id number] 2021 Private Health Insurance [id number] Private Health Insurance AETNA MCR [id number] Private Health Insurance CLV CLI LEXI [employer] EHP*CAN'T SEE [id number] Self-pay SELF PAY INSURANCE [id number] Social History Date Type Detail Facility Start: [facility]-24-2022 [facility] Start: 04-24-2022 Tobacco use and exposure Smokeless tobacco non-user [facility] Start: 04-24-2022 End: 07-23-2023 Alcohol intake Current non-drinker of alcohol (finding) [facility] Start: 08-26-2013 Alcohol Comment none [facility] Start: 1955 Sex Assigned At Not on file [facility] Start: 04-14-2022 End: 04-24-2022 Exposure to SARS-CoV-2 (event) Not sure [facility] Start: 1955 Sex Assigned At Female W [facility] Start: 07-15-2023 End: 07-23-2023 History of Social function [facility] Start: 07-15-2023 End: 07-23-2023 Tobacco use panel [facility] National Score (1-100), lower number is lower risk 53 [facility] Procedure Code Equipment Code Equipment Origin al Text Equipment Identifier Dates Jass Bn Smpx P Radpq Fd Strl - [id number] Start: 08-26-2013 Comment on above: Description: BONE CE MENT Comp Fem 6 Rt Kn Cr Jass Trthln - [id number] Start: 08-26-2013 Comment on above: Description: cruciat e retaining femoral Ins Tib 6 9mm X3 Cs Trthln - [id number] Start: 08-26-2013 Comment on above: Description: tibial bearing insert-cs Baseplt Tib Trth ln 6 Prim - [id number] Start: 08-26-2013 Comment on above: Description: tibial baseplate Stent Uret 6fr 24cm W/O Gw Inl - [id number] Start: 06-11-2015 Comment on above: Description: BARD IN LAY OPTIMA URETERAL STENT Stent Inlay Opti ma 6fr Taper 26cm Polymer Phreecoat [place] Ureteral - [id number] Start: 06-21-2015 Goals Date Patient Goal Desired Activity /State Personal health goal Comment on above: Formatting of this n ote might be different from the original. 2014 goal weight 192 Comment on above: Formatting of this n ote might be different from the original. 2014 goal weight 192 Clinical Notes 12-22-2014 to 08-02-2023 Kenyon Camargo APRN.AUTO BODY PAINTER - 08/02/2023 7:16 PM Tiago Hendrickson MD - 07/23/2023 4:18 PM Tiago Hendrickson MD - 07/15/2023 4:10 PM ESTPatient Instructions Note Date & Type Note Facility 08-02-2023 Note HNO ID: [id number] Author: KENYON CAMARGO APRN.AUTO BODY PAINTER Service: ? Author Type: Nurse Practitioner Type: Progress Notes Filed: 08/02/2023 19:32 Note Text: [facility] PATIENT NAME: Jerilyn Rossi DATE OF : 1955 TODAYS' DATE: 08/02/2023 Subjective: Ms. Rossi is a 68 year old female Patient presents with: Ear Pain: Right ear pain since jul 13 History of Present Illness: The history is provided by the patient. No mallet cutter was used. Ear Problem There is pain [...] of right ear and was seen in [facility] and by ENT. Pt just finished [...] with stent placement HY[facility]PA[facility] SYS,CD,[id number] 11/2009, 2010 right ORTHOPEDICS SURGERY HX VAGINAL [...] mouth 1 hour (more content not included)... [facility] 08-02-2023 History of Presen t illness Narrative Images from the original note were not included. [facility] PATIENT NAME: Jerilyn Rossi DATE OF : 1955 TODAYS' DATE: 08/02/2023 Subjective: Ms. Rossi is a 68 year old female Patient presents with: Ear Pain: Right ear pain since jul 13 History of Present Illness: The history is provided by the patient. No mallet cutter was used. Ear Problem There is pain [...] of right ear and was seen in [facility] and by ENT. Pt just finished [...] HYSTERECTOMY HX HYSTEROSCOPY with [facility] MENISCAL REPAIR BALA,VINCENT,[id number] 11/2009, 2010 right ORTHOPEDICS SURGERY HX VAGINAL [...] 08/02/23 7:16 PM documented in this encounter [facility] 07-23-2023 Note HNO ID: [id number] Author: TIAGO BE MD Service: ? Author [...] Medical Decision Making Level: 3 - Low [facility] 07-23-2023 History of Presen t illness Narrative [...] 3 - Low documented in this encounter [facility] 07-15-2023 Note HNO ID: [id number] Author: TIAGO BE MD Service: ? Author [...] HYSTERECTOMY HX HYSTEROSCOPY with [facility] MENISCAL REPAIR SYS,CD,[id number] 11/2009, 2010 right ORTHOPEDICS SURGERY HX VAGINAL [...] Medical Decision Making Level: 3 - Low [facility] 07-15-2023 History of Presen t illness Narrative [...] HYSTERECTOMY HX HYSTEROSCOPY with [facility] MENISCAL REPAIR SYS,CD,[id number] 11/2009, 2010 right ORTHOPEDICS SURGERY HX VAGINAL [...] 3 - Low documented in this encounter [facility] 07-13-2023 Note HNO ID: [id number] Author: TIAGO RODRIGUEZ MD Service: ? Author Type: Physician Type: Progress Notes Filed: 07/13/2023 10:13 Note Text: This note was created using [employer]. Subjective Jerilyn Rossi is a 68 year [...] (MONODOX) 100 mg capsule, CONSULT TO ENT [facility] 04-24-2022 Instructions Anaid Long PA-C - 04/24/2022 [...] mouth and then touches another person directly (jpkn-px-pogb contact) or indirectly (jxuz-wq-lfoveg, such as doorknob, telephone, toys). It is [...] every four months on our web site ([email or web address]). Information below was obtained from Up to date Last literature review version 19.2: October 2010 This topic last updated: January 18, 2010 documented in this encounter [facility] 04-24-2022 History of Presen t illness Narrative [...] HYSTERECTOMY HX HYSTEROSCOPY with D&C MENISCAL REPAIR SYGillian,CD,[id number] 11/2009, 2010 right ORTHOPEDICS SURGERY HX VAGINAL [...] follow up discussed documented in this encounter [facility] 12-22-2014 History of Past i llness Narrative [...] of this encounter (statuses as of 04/24/2022) [facility] History of Past illness Narrative* Problem Noted [...] of this encounter (statuses as of 07/16/2023) [facility] History of Past illness Narrative* Problem Noted [...] of this encounter (statuses as of 07/23/2023) [facility] History of Past illness Narrative* Problem Noted [...] of this encounter (statuses as of 08/02/2023) [facility] note* Diagnosis Sore throat- Primary Acute pharyngitis documented in this encounter [facility] note* Diagnosis Onset Date Resolution Status Hyperlipemia acute Hypertension [facility] Work Phone: Evaluation note* Diagnosis Acute otitis externa of right ear, unspecified type- Primary Cellulitis of left external ear Infective otitis externa, unspecified documented in this encounter [facility] note* Diagnosis Acute otitis externa of right ear, unspecified type- Primary documented in this encounter [facility] note* Diagnosis Eustachian tube dysfunction, right- Primary documented in this encounter [facility] Summary Purpose Family History No Family History [...] section and content) DATE CREATED AUTHOR 10/01/2021 [facility] DATE CREATED AUTHOR AUTHOR'S ORGANIZ ATION 08/04/2023 [facility] Source Comments (unrecognize d section and content) In the event this informatio n is protected by the Federal Confidentiality of Alcohol and Drug Abuse Patient Records regulations: The Federal rules restrict any use of the information to criminally investigate or prosecute any alcohol or drug abuse patient.[facility] the event this information is protected by the Federal Confidentiality of Alcohol and Drug Abuse Patient Records regulations: The Federal rules restrict any use of the information to criminally investigate or prosecute any alcohol or drug abuse patient.[facility] the event this information is protected by the Federal Confidentiality of Alcohol and Drug Abuse Patient Records regulations: The Federal rules restrict any use of the information to criminally investigate or prosecute any alcohol or drug abuse patient.[facility] the event this information is protected by the Federal Confidentiality of Alcohol and Drug Abuse Patient Records regulations: The Federal rules restrict any use of the information to criminally investigate or prosecute any alcohol or drug abuse patient.[facility] Reason for Visit (unrecogniz ed section and content) Reason Comments Ear Pain Right ear, right bibi ed throat pain, x 3 days Reason Comments Ear Problem Specialty Diagnoses / Procedures Referred By Contac t Referred To Contact Ent - Otolaryngology Diagnoses Cellulitis of left external ear Procedures CONSULT TO ENT OFFICE/OUTPATIENT [facility] 60 MINUTES Tiago Rodriguez MD [address] [place] [address] Referral ID Status Reason Start Date Expiration Date V isits Requested Visits Authorized [id number] Closed PCP Requested Referral 07/13/2023 07/12/2024 1 1 Reason Comments Follow Up Reason Comments Ear Pain Right ear pain since jul 13 Care Teams (unrecognized sec tion and content) Ostomy Nurse Relationship Specialty Start Date End Date Kat Hurtado, KICK PRESS SETTER.STEVE PCP - General Family Medicine 08/02/15 Sha Urrutia MD [address] [place] [id number] Primary Staff Physician Cardiology 08/19/18 Team Status: Inactive Member Role Status Dates Kat Hurtado LOAD CHECKER, LOAD CHECKER-C Attending Provider Active Ostomy Nurse Relationship Specialty Start Date End Date Kat Hurtado, KICK PRESS SETTER.AUTO BODY PAINTER [address] [place] [address] PCP - General Family Medicine 08/02/15 Sha Urrutia MD [address] [place] [address] Primary Staff Physician Cardiology 08/19/18 Ostomy Nurse Relationship Specialty Start Date End Date Kat Hurtado, KICK PRESS SETTER.AUTO BODY PAINTER [address] [place] [address] PCP - General Family Medicine 08/02/15 Sha Urrutia MD [address] [place] [address] Primary Staff Physician Cardiology 08/19/18 Ostomy Nurse Relationship Specialty Start Date End Date Kat Hurtado, KICK PRESS SETTER.AUTO BODY PAINTER [address] [place] [address] PCP - General Family Medicine 08/02/15 Sha Urrutia MD [address] [place], [place] [id number] Primary Staff Physician Cardiology 08/19/18 Goals (unrecognized [...] BE BASED ON THE PRIMARY CLINICAL RECORDS. [employer] [facility]. provides no warranty or guarantee of the accuracy or completeness of information in this document.
[2024-12-17 01:14] LABS: Hematocrit 41.1 % (37-47); Hemoglobin 13.6 g/dL (12.0-15.0); Immature Granulocytes Count 0.020 X10^3/uL (0.0-0.0); Mean Corp Hgb Conc 33.1 g/dL (32-36); Mean Corpuscular Volume 86.3 fL (81-99); Mean Platelet Vol. 12.5 fl (6.2-12.0); NRBC Flagged by Analyzer 0 % (0-5); Platelet Count 245 K/mm3 (150-450); RBC Distribution Width CV 12.7 % (11.6-14.6); RBC Distribution Width SD 39.9 fl (35.1-43.9); Red Blood Count 4.76 M/mm3 (4.2-5.4); White Blood Count 7.6 K/mm3 (4.4-11.0)
[2024-12-17 01:47] LABS: AST(SGOT) 22 U/L (<=31); Alanine Aminotransfer ALT/SGPT 23 U/L (<=34); Albumin, Serum 4.7 g/dL (3.4-4.8); Alkaline Phosphatase 124 U/L (35-104); Anion Gap 14 (5-15); BUN 16 mg/dL (4-19); BUN/Creat Ratio 26.9 RATIO (10-20); Calcium,Total 10.5 mg/dL (7.6-11.0); Carbon Dioxide 22.3 mmol/L (21.0-32.0); Chloride 101 mmol/L (98-108); Cholesterol 209 mg/dL (<=200); Globulin 2.9 g/dL (2.2-4.2); Glucose 154 mg/dL (70-99); Low Density Lipoprotein Calc. 135 mg/dL; Potassium 4.1 mmol/L (3.3-5.1); Triglycerides 127 mg/dL; Very Low Density Lipoprotein 25 mg/dL (5-40); cholesterol:hdl ratio screen 4.29
== END | disposition home or self-care (01) ==
PROVIDERS: Referring Provider Nurse Practitioner; Visit Provider Nurse Practitioner
DX: I10 Essential (primary) hypertension (principal); E78.2 Mixed hyperlipidemia
CPT/HCPCS: 80053; 80061; 85025